=== PATIENT | female | born 1935 | race Caucasian/White ===

== ENCOUNTER 2020-01-11 17:00 | Inpatient (IN) ==
[2020-01-11] MEDS ORDERED: CARDIZEM INJ 50 MG VIAL ONE (18:13)
[2020-01-11] MEDS ORDERED: CARDIZEM INJ 50 MG VIAL IVP ONE (18:13)
[2020-01-11] MEDS ORDERED: CARDIZEM INJ 125 MG VIAL ONE (18:13)
--- NOTE | 2020-01-11 18:13 | DR.GENAD ---
HPI Time Seen Time Seen by Provider: 01/11/20 17:59 PCP Primary Care Physician: LEONIE CHRISTINA Complaint/Symptoms Chief Complaint Doctors Comments: Pt had lab work yesterday in [place]. Told to come to ED this afternoon. Her HB was 7.8, WBC 20,000 to left, CO2 19. Asymptomatic. 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 EKG shows a.fib w RVR at 161. Chief Complaint:: PT TO ER TO BE SEEN FOR ABN LABS ,,BR Self Treatment fo Chief Complaint: PT HAS LABS DONE ON 01/10/2020 PT DENIES PAIN , OR SOB Nurses notes reviewed Nurses Notes Review: Yes Source History Provided: Patient Mode of Arrival Mode of Arrival: Ambulatory Timing Onset of Chief Complaint: 01/10/20 Duration Duration: Unknown Associated Signs and Symptoms Associated Signs and Symptoms: none PMH PMH Past Medical History: Yes Past Medical History: Arthritis, COPD and Hypertension Past Medical History Comment: INSOMNIA, < APPETITE Rheum arthritis Past Surgical History: Yes Surgical History: Hysterectomy Family History History of Family Medical Conditions: Yes Family Medical History: Cancer, [place] and Coronary Artery Disease Social History Does patient currently use any type of tobacco product: Yes Have you used tobacco products in the last 12 months: Yes Type of Tobacco Use: Cigarettes Does any household member use tobacco: No Alcohol Use: Rarely Do you use any recreational Drugs:: No Lives With: Alone Lives Where: Home infectious screening In the last 2 months have you had wt loss of >10#?: NO Have you had fever, night sweats or hemotysis?: No Have you traveled outside the country in the last 6 months?: No Isolation: Standard ROS Review of Systems Constitutional: No Symptoms Reported; negative Chills and Fever ENTM: No Symptoms Reported Respiratoy: No Symptoms Reported Cardiovascular: No Symptoms Reported; negative Palpitations Gastrointestinal/Abdominal: No Symptoms Reported Neurological: No Symptoms Reported Musculoskeletal: No Symptoms Reported Integumentary: No Symptoms Reported All Other Systems: Reviewed and Negative PE Vital Signs Vitals: Temperature 97.2 F Pulse Rate [Apical] 167 Pulse Rate 155 Respiratory Rate 16 Blood Pressure [Left Arm] 169/106 Blood Pressure 130/85 O2 Sat by Pulse Oximetry 95 General Limitations: No Limitations General Appearance: Alert and In No Apparent Distress; negative Anxious Eyes Eye exam: Normal Appearance, EOMI and Other (pale conjunctiva); negative Scleral Icterus Neck Neck Exam: Normal Inspection and Full ROM Chest Chest Inspection: Normal Inspection Respiratory Respiratory Exam: Normal Lung Sounds Bilat Cardiovascular Cardiovascular Exam: Tachycardia and Irregular Rhythm Abdominal Exam Abdominal Exam: Normal Inspection and Soft; negative Distention, Tenderness and Guarding Extremities Extremities Exam: Normal Inspection; negative Edema and Calf Tenderness Neurologic Neurological Exam: Alert and Oriented X3 Psychiatric Psychiatric Exam: Normal Affect and Normal Mood Skin Skin Exam: Warm and Normal Color ROR Labs Reviewed Laboratory Results Reviewed?: Yes Result Diagrams: 01/11/20 18:15 01/11/20 18:15 Laboratory: WBC 19.1 X10^3/uL (3.6-10.0) H 01/11/20 18:15 RBC 3.42 X10^6/uL (3.5-5.4) L 01/11/20 18:15 Hgb 8.2 g/dL (12.0-16.0) L 01/11/20 18:15 Hct 25.3 % (36.0-47.0) L 01/11/20 18:15 MCV 73.9 fL (80.0-100.0) L 01/11/20 18:15 MCH 23.8 pg (27.0-34.0) L 01/11/20 18:15 MCHC 32.3 g/dL (33.0-35.0) L 01/11/20 18:15 RDW 18.4 % (11.6-16.5) H 01/11/20 18:15 Plt Count 622 X10^3/uL (150.0-450.0) H 01/11/20 18:15 Plt Count Comment Increased (ADEQUATE) A 01/11/20 18:15 MPV 7.0 fL (7.4-11.0) L 01/11/20 18:15 Neut % (Auto) 84.2 % (42.0-75.0) H 01/11/20 18:15 Lymph % (Auto) 10.5 % (21.0-51.0) L 01/11/20 18:15 [place] % (Auto) 4.8 % (0.0-13.0) 01/11/20 18:15 Eos % (Auto) 0.1 % (0.9-2.9) L 01/11/20 18:15 Baso % (Auto) 0.4 % (0.2-1.0) 01/11/20 18:15 Neut # (Auto) 16.1 x10^3/uL (2.2-4.8) H 01/11/20 18:15 Lymph # (Auto) 2.0 X10^3/uL (1.3-2.9) 01/11/20 18:15 [place] # (Auto) 0.9 x10^3/uL (0.3-0.8) H 01/11/20 18:15 Eos # (Auto) 0.0 x10^3/uL (0.0-0.2) 01/11/20 18:15 Baso # (Auto) 0.1 X10^3/uL (0.0-0.1) 01/11/20 18:15 Absolute Nucleated RBC 0.1 /100WBC 01/11/20 18:15 Plt Morphology Comment Normal (NORMAL) 01/11/20 18:15 RBC Morphology Abnormal (NORMAL) A 01/11/20 18:15 Hypochromasia 1+ A 01/11/20 18:15 Anisocytosis Slight A 01/11/20 18:15 Microcytosis Slight A 01/11/20 18:15 Schistocytes Slight A 01/11/20 18:15 Sodium 141 mmol/L (136-145) 01/11/20 18:15 Corrected Sodium TNP 01/11/20 18:15 Potassium 3.6 mmol/L (3.5-5.1) 01/11/20 18:15 Chloride 104 mmol/L (98-107) 01/11/20 18:15 Carbon Dioxide 25.1 mmol/L (21-32) 01/11/20 18:15 BUN 23 mg/dL (7-18) H 01/11/20 18:15 Creatinine 0.84 mg/dL (0.55-1.02) 01/11/20 18:15 Est GFR (MDRD) Af Amer > 60 (>60) 01/11/20 18:15 Est GFR (MDRD) Non-Af > 60 (>60) 01/11/20 18:15 Glucose 100 mg/dL (65-99) H 01/11/20 18:15 Calcium 8.2 mg/dL (8.5-10.1) L 01/11/20 18:15 Corrected Calcium 9.6 mg/dL (8.5-10.1) 01/11/20 18:15 Iron 12 ug/dL (50-175) L 01/11/20 18:15 TIBC 250 ug/dL (250-450) 01/11/20 18:15 TIBC Cancelled 01/11/20 18:15 % Saturation 4.8 % (11.0-46.0) L 01/11/20 18:15 Ferritin 113 ng/mL (8-252) 01/11/20 18:15 Total Bilirubin 0.50 mg/dL (0.2-1.0) 01/11/20 18:15 AST 17 Units/L (15-37) 01/11/20 18:15 ALT 14 Units/L (12-78) 01/11/20 18:15 Alkaline Phosphatase 160 Units/L (46-116) H 01/11/20 18:15 Creatine Kinase 41 Units/L (26-192) 01/11/20 18:15 CK-MB (CK-2) 1.9 ng/mL (0-4.0) 01/11/20 18:15 CK/CKMB % Calc 4.6 % (<4) 01/11/20 18:15 Troponin I < 0.02 ng/mL (0-1.5) 01/11/20 18:15 Total Protein 6.8 g/dL (6.4-8.2) 01/11/20 18:15 Albumin 2.2 g/dL (3.4-5.0) L 01/11/20 18:15 Globulin 4.6 g/dL (2.5-4.5) H 01/11/20 18:15 Albumin/Globulin Ratio 0.5 Ratio (1.1-2.1) L 01/11/20 18:15 XRAY X-ray Results: CXR nothing acute EKG Rate: 161 [place]: Normal Rhythm: Afib Block: None Hypertrophy: None ST: Nonsp Opioid Opioid Risk Tool Age (Abdoul box if 16-45): No History of Preadolescent Sexual Abuse: No Total: 0 Total Score Risk Category: Low Risk Copyright: [facility] predicting aberrant behaviors ADDITIONAL NOTES Additional Notes Additional Notes: admit to ICU. atrial fib with RVR, marked anemia, high WBC critical care 40 minutes
[2020-01-11] MEDS ORDERED: NS 100 ML IV 100 ML IV ONE (18:14)
[2020-01-11 18:20] LABS: BASOPHILS # (AUTO) 0.1 X10^3/uL (0.0-0.1); BASOPHILS % (AUTO) 0.4 % (0.2-1.0); EOSINOPHILS % (AUTO) 0.1 % (0.9-2.9); HEMATOCRIT 25.3 % (36.0-47.0); HEMOGLOBIN 8.2 g/dL (12.0-16.0); LYMPHOCYTES % (AUTO) 10.5 % (21.0-51.0); MEAN CORPUSCULAR HEMOGLOBIN 23.8 pg (27.0-34.0); MEAN CORPUSCULAR HGB CONC 32.3 g/dL (33.0-35.0); MEAN CORPUSCULAR VOLUME 73.9 fL (80.0-100.0); MONOCYTES # (AUTO) 0.9 x10^3/uL (0.3-0.8); MONOCYTES % (AUTO) 4.8 % (0.0-13.0); NEUTROPHILS # (AUTO) 16.1 x10^3/uL (2.2-4.8); NEUTROPHILS % (AUTO) 84.2 % (42.0-75.0); PLATELET COUNT 622 X10^3/uL (150.0-450.0); RED BLOOD COUNT 3.42 X10^6/uL (3.5-5.4); RED CELL DISTRIBUTION WIDTH 18.4 % (11.6-16.5); WHITE BLOOD COUNT 19.1 X10^3/uL (3.6-10.0)
[2020-01-11] MEDS: CARDIZEM INJ 125 MG VIAL 125 MG in NS 100 ML IV 100 ML IV PRN (18:29)
[2020-01-11 18:39] LABS: ANISOCYTOSIS SLIGHT; BLOOD UREA NITROGEN 23 mg/dL (7-18); CALCIUM 8.2 mg/dL (8.5-10.1); CARBON DIOXIDE 25.1 mmol/L (21-32); CHLORIDE 104 mmol/L (98-107); CREATININE 0.84 mg/dL (0.55-1.02); HYPOCHROMASIA 1+; MICROCYTOSIS SLIGHT; PLATELET MORPHOLOGY COMMENT NORMAL (NORMAL); SCHISTOCYTES SLIGHT; SODIUM 141 mmol/L (136-145); TROPONIN I < 0.02 ng/mL (0-1.5); eGFR NON BLACK RACES > 60 (>60)
[2020-01-11 18:44] LABS: ALANINE AMINOTRANSFERASE 14 Units/L (12-78); ALBUMIN 2.2 g/dL (3.4-5.0); ALKALINE PHOSPHATASE 160 Units/L (46-116); ASPARTATE AMINO TRANSFERASE 17 Units/L (15-37); CKMB % 4.6 % (<4); COR CA(FOR HYPOALB) 9.6 mg/dL (8.5-10.1); CREATINE KINASE 41 Units/L (26-192); CREATINE KINASE MB 1.9 ng/mL (0-4.0); TOTAL PROTEIN 6.8 g/dL (6.4-8.2)
--- NOTE | 2020-01-11 18:50 | RAD ---
HISTORYELEVATED HRSTUDYCHEST, 1 VIEWCOMPARISONNo recent comparisonTECHNIQUEThe chest x-rayFINDINGSThe cardiac silhouette is enlarged. An uncoiled, tortuous, ectatic thoracic aorta configuration is observed. No infiltrates, edema or pleural fluid collections identified. There is no free air or pneumothorax.IMPRESSIONCardiomegaly with tortuous, ectatic thoracic aorta.No infiltrates or edema identified.Electronically signed by: ELKE JOSEPH (Jan 11, 2020 18:49:11)
[2020-01-11] MEDS ORDERED: NS 1000 ML 1,000 ML ONE (18:57)
[2020-01-11] MEDS: NS 1000 ML 1,000 ML IV SCH (19:00)
[2020-01-11 22:21] VITALS: BMI 25.1
[2020-01-11] MEDS: KLONOPIN TAB 0.5 MG PO SCH (22:28)
[2020-01-11] MEDS: XALATAN OP SCH (22:29)
[2020-01-11] MEDS: PRED FORTE 1 % OP SCH (22:29)
[2020-01-12] MEDS: CARDIZEM INJ 125 MG VIAL 125 MG in NS 100 ML IV 100 ML IV PRN ×3 (04:34→23:01)
[2020-01-12] MEDS: NS 1000 ML 1,000 ML IV SCH ×4 (04:37→23:21)
[2020-01-12 05:12] LABS: BASOPHILS % (AUTO) 0.2 % (0.2-1.0); EOSINOPHILS # (AUTO) 0.1 x10^3/uL (0.0-0.2); EOSINOPHILS % (AUTO) 0.3 % (0.9-2.9); HEMATOCRIT 22.1 % (36.0-47.0); HEMOGLOBIN 7.1 g/dL (12.0-16.0); LYMPHOCYTES # (AUTO) 0.9 X10^3/uL (1.3-2.9); LYMPHOCYTES % (AUTO) 6.1 % (21.0-51.0); MEAN CORPUSCULAR HEMOGLOBIN 25.3 pg (27.0-34.0); MEAN CORPUSCULAR HGB CONC 32.1 g/dL (33.0-35.0); MEAN CORPUSCULAR VOLUME 78.9 fL (80.0-100.0); MEAN PLATELET VOLUME 7.4 fL (7.4-11.0); MONOCYTES # (AUTO) 0.9 x10^3/uL (0.3-0.8); MONOCYTES % (AUTO) 6.3 % (0.0-13.0); NEUTROPHILS % (AUTO) 87.1 % (42.0-75.0); PLATELET COUNT 528 X10^3/uL (150.0-450.0); RED CELL DISTRIBUTION WIDTH 17.9 % (11.6-16.5); WHITE BLOOD COUNT 14.9 X10^3/uL (3.6-10.0)
[2020-01-12 05:23] LABS: BLOOD UREA NITROGEN 14 mg/dL (7-18); CALCIUM 7.9 mg/dL (8.5-10.1); CARBON DIOXIDE 24.5 mmol/L (21-32); CHLORIDE 108 mmol/L (98-107); CREATININE 0.63 mg/dL (0.55-1.02); SODIUM 142 mmol/L (136-145); eGFR NON BLACK RACES > 60 (>60)
[2020-01-12 05:25] LABS: ANISOCYTOSIS SLIGHT; HYPOCHROMASIA 1+; OVALOCYTES PRESENT; PLATELET MORPHOLOGY COMMENT NORMAL (NORMAL)
[2020-01-12] MEDS ORDERED: K-RIDER 10 MEQ/NS 100 ML 10 MEQ/100 ML BAG IV PRN (05:31)
[2020-01-12] MEDS ORDERED: MICRO K EXTEN CAP 10 MEQ PO PRN (05:31)
[2020-01-12] MEDS ORDERED: POTASSIUM CHL 40 MEQ/NS 0.45% 500 ML IV PRN (05:31)
[2020-01-12] MEDS ORDERED: POTASSIUM CHL 60 MEQ/NS 0.45% 500 ML IV PRN (05:31)
[2020-01-12] MEDS ORDERED: POTASSIUM CHLORIDE LIQ 20 MEQ UDC PO PRN (05:31)
[2020-01-12] MEDS ORDERED: MAGNESIUM SULFATE 1 GRAM/100 mL PREMIX 1 GM/100 ML BAG IV PRN (05:31)
[2020-01-12] MEDS ORDERED: KLOR-CON PO PRN (05:31)
[2020-01-12] MEDS: K-DUR TAB 20 MEQ PO PRN ×2 (06:09→08:41)
[2020-01-12] MEDS ORDERED: ZESTRIL TAB 20 MG ONE (08:30)
[2020-01-12] MEDS: NORCO 10/325 TAB PO PRN ×2 (08:42→21:02)
[2020-01-12] MEDS: ZESTRIL TAB 20 MG PO SCH (08:42)
[2020-01-12] MEDS: ASPIRIN EC 81 MG PO SCH (08:43)
[2020-01-12] MEDS: PRED FORTE 1 % OP SCH ×2 (08:44→21:53)
[2020-01-12] MEDS: LEVSIN/MAALOX/LIDOC VISC PO SCH ×4 (09:58→21:00)
[2020-01-12] MEDS: PROTONIX INJ 40 MG VIAL IVP SCH ×2 (09:58→21:01)
[2020-01-12] MEDS: PEPCID 20 MG IV PREMIX* 20 MG/50 ML BAG IV SCH ×2 (09:58→21:00)
[2020-01-12] MEDS ORDERED: NS 250 ML IV 250 ML IV ONE ×2 (11:32→16:32)
--- NOTE | 2020-01-12 11:33 | DR.H&P ---
H&P - History & Physical for Day of: H&P Date: 01/11/20 - Chief Complaint Chief Complaint: WEAKNESS, SOB, ABNORMAL LABS - History of Present Illness History of Present Illness: IS A 84 YEAR OLD PATIENT OF OURS WHO PRESENTED TO THE ER WITH COMPLAINTS OF WEAKNESS, SHORTNESS OF BREATH, AND ABNORMAL OUTPATIENT LABS. OUTPATIENT LABS REVEALED THAT PATIENTS HEMOGLOBIN WAS 7.8, WBC 20,000, C02 19.0. ON ARRIVAL TO THE ER, SHE WAS NOTED WITH HR 175-180 WITH ATRIAL FIBRILLATION ON THE MONITOR. BLOOD PRESSURE WAS NOTED TO BE 130/85. LABS WERE OBTAINED. ABNORMAL LAB VALUES REVEALED THE FOLLOWING ABNORMAL VALUES: WBC 19.1, RBC 3.42, HGB 8.2, HCT 25.3, PLT COUNT 622, BUN 23, GLUCOSE 100, CALCIUM 8.2, IRON 12, % SATURATION 4.8, ALK PHOS 160, ALBUMIN 2.2, GLOBULIN 4.6. AN EKG WAS OBTAINED AND REVEALED: ATRIAL FIBRILLATION WITH RVR. HR 161. A CHEST XRAY WAS OBTAINED AND REVEALED: The cardiac silhouette is enlarged. An uncoiled, tortuous, ectatic thoracic aorta configuration is observed. No infiltrates, edema or pleural fluid collections identified. There is no free air or pneumothorax. SHE WAS STARTED ON A CARDIZEM DRIP AND ADMITTED TO THE HOSPITAL FOR FURTHER EVALUATION AND TREATMENT OF A-FIB WITH RVR, SEVERE ANEMIA, AND LEUKOCYTOSIS. WE STARTED NS AT KVO, CARDIZEM DRIP, IV ZOSYN, THE POTASSIUM AND MAGNESIUM PROTOCOLS, PEPCID IV, PROTONIX IV, GI COCKTAIL, AND HOME MEDICATIONS WERE RESUMED. WE WILL OBTAIN STOOL, URINE, BLOOD, AND SPUTUM CULTURES TODAY. WE WILL ALSO TRANSFUSE TWO UNITS OF PRBC, HEMOCCULT STOOLS, AND CONSULT GI. OTHERWISE, WE PLAN TO FOLLOW UP WITH AM LABS AND CONTINUE TO MONITOR. - Past Medical History Past Medical History: Hypertension, COPD, Arthritis - Past Surgical History Surgical History: Hysterectomy - Family History Family Medical History: Diabetes Mellitus, Cancer, [place], Coronary Artery Disease, Hypertension - Social History Does patient currently use any type of tobacco product: Yes Have you used tobacco products in the last 12 months: Yes Type of Tobacco Use: Cigarettes How many years tobacco product used: 60 Does any household member use tobacco: Yes Alcohol Use: Occasionally Drug Use: None - Medications Home Medications: No Known Drug Allergies Allergy (Verified 01/11/20 17:18) CONTINUE taking the following medications aspirin [Aspir-Low] 81 mg PO DAILY 01/11/20 [History] clonazepam 0.5 mg PO QHS 01/11/20 [History] dorzolamide 1 drp OPHTHALMIC (EYE) BID 01/11/20 [History] hydrocodone-acetaminophen 1 tab PO QID 01/11/20 [History] latanoprost 1 drp OPHTHALMIC (EYE) HS 01/11/20 [History] lisinopril 20 mg PO DAILY 01/11/20 [History] naproxen-diphenhydramine [Aleve PM] 2 tab PO HS 01/11/20 [History] prednisolone acetate 1 drp OPHTHALMIC (EYE) BID 01/11/20 [History] - Review of Systems Constitutional: See HPI, Weakness Eyes: No Symptoms Reported ENT: No Symptoms Reported Respiratory: Shortness of Breath Cardiovascular: See HPI, Palpitations Gastrointestinal: No Symptoms Reported Genitourinary: No Symptoms Reported Musculoskeletal: No Symptoms Reported Skin: No Symptoms Reported Neurological: Weakness - Physical Exam Vital Signs: Temperature 100.8 F Pulse Rate [Apical] 167 Pulse Rate 105 Respiratory Rate 18 Blood Pressure [Left Arm] 169/106 Blood Pressure 110/77 O2 Sat by Pulse Oximetry 95 Oriented: Normal Eyes: Normal Ear: Normal Nose: Normal Throat: Normal Respiratory: Diminished Throughout Cardiovascular: Tachycardia, Irregular. negative: S3, S4, Murmur : Normal Auscultation: Bowel Sounds: Normal Palpation: Normal Tenderness: Normal Skin: Normal Musculoskeletal: Normal Psychiatric: Normal Mood Description: Calm Affect: Normal Speech Pattern: Clear - Assessment/Plan (1) Atrial fibrillation with RVR Status: Acute Plan: ADMIT, NS AT O, CARDIZEM DRIP, IV ZOSYN, THE POTASSIUM AND MAGNESIUM PROTOCOLS, PEPCID IV, PROTONIX IV, GI COCKTAIL, AND HOME MEDICATIONS WERE RESUMED, OBTAIN CULTURES (2) Anemia Qualifiers: Anemia type: iron deficiency Iron deficiency anemia type: unspecified iron deficiency Qualified Code(s): D50.9 - Iron deficiency anemia, unspecified Status: Acute (3) Leukocytosis Qualifiers: Leukocytosis type: unspecified Qualified Code(s): D72.829 - Elevated white blood cell count, unspecified Status: Acute - Allergies Allergies/Adverse Reactions: Allergies Allergy/AdvReac Type Severity Reaction Status Date / Time No Known Drug Allergies Allergy Verified 01/11/20 17:18
[2020-01-12 14:07] LABS: BILIRUBIN,URINE NEGATIVE (NEGATIVE); BLOOD/HEMOGLOBIN,URINE 1+ (NEGATIVE); GLUCOSE, URINE NEGATIVE (NEGATIVE); KETONES,URINE 1+ (NEGATIVE); LEUKOCYTE ESTERASE ,URINE 1+ (NEGATIVE); NITRITES,URINE NEGATIVE (NEGATIVE); PROTEIN,URINE 2+ (NEGATIVE); UROBILINOGEN,URINE 2+ (NORMAL)
[2020-01-12] MEDS: ZOSYN VIAL 4.5 GRAMS 4.5 G in NS 100 ML IV + SPIKE MINIBAG* 100 ML IV SCH ×3 (14:19→21:01)
[2020-01-12 14:20] LABS: APPEARANCE,URINE HAZY (CLEAR); COLOR,URINE YELLOW (YELLOW)
[2020-01-12 14:21] LABS: BACTERIA,URINE 1+ /HPF (NEGATIVE); MUCUS,URINE FEW /HPF (NEGATIVE); SQUAMOUS EPITHELIAL CELL,UR FEW /HPF (NEGATIVE)
--- NOTE | 2020-01-12 19:32 | DR.CONSULT ---
Consult - Consultation for Day of: Date: 01/12/20 - Chief Complaint Chief Complaint: Patient referred for Anemia. Patient with complaints of dysphagia, dyspepsia, lower abdominal pain and constipation. - History of Present Illness History of Present Illness: Patient is a 84 yo female who was referred for Anemia. Patient with complaints of dysphagia, dyspepsia, lower abdominal pain for 3 days but has improved and constipation but has improved had BM this am. Patient denies nausea, vomiting, denies seeing any melena or hematochezia. Patient states she had never had a colonoscopy or EGD. Patient noted to have epigastric tenderness on palpitation. WBC 14.9, Hgb 7.1, Hct 22.1, Plt 528, BUN 14, Creatinine 0.65, Iron 12. Hemoccult positive. - Past Medical History Past Medical History: Hypertension, COPD, Arthritis - Past Surgical History Surgical History: Hysterectomy - Family History Family Medical History: Diabetes Mellitus, Cancer, [place], Coronary Artery Disease, Hypertension - Social History Does patient currently use any type of tobacco product: Yes Have you used tobacco products in the last 12 months: Yes Type of Tobacco Use: Cigarettes (1 1/2-2ppd) How many years tobacco product used: 60 Does any household member use tobacco: Yes Alcohol Use: Occasionally Drug Use: None - Medications Home Medications: No Known Drug Allergies Allergy (Verified 01/11/20 17:18) CONTINUE taking the following medications aspirin [Aspir-Low] 81 mg PO DAILY 01/11/20 [History] clonazepam 0.5 mg PO QHS 01/11/20 [History] dorzolamide 1 drp OPHTHALMIC (EYE) BID 01/11/20 [History] hydrocodone-acetaminophen 1 tab PO QID 01/11/20 [History] latanoprost 1 drp OPHTHALMIC (EYE) HS 01/11/20 [History] lisinopril 20 mg PO DAILY 01/11/20 [History] naproxen-diphenhydramine [Aleve PM] 2 tab PO HS 01/11/20 [History] prednisolone acetate 1 drp OPHTHALMIC (EYE) BID 01/11/20 [History] - Review of Systems Gastrointestinal: See HPI, Abdominal Pain, Constipation, Other (dysphagia, dyspepsia). denies: Nausea, Vomiting, Diarrhea, Melena, Hematochezia - Physical Exam Vital Signs: Temperature 99.9 F Pulse Rate [Apical] 167 Pulse Rate 97 Respiratory Rate 25 Blood Pressure [Left Arm] 169/106 Blood Pressure 151/87 O2 Sat by Pulse Oximetry 96 Oriented: Normal Eyes: Normal Ear: Normal Nose: Normal Throat: Normal Respiratory: Clear Throughout Auscultation: Bowel Sounds: Normal Palpation: Normal. negative: Spleen Enlarged, Liver Enlarged, Mass Pulsatile Tenderness: Epigastric Skin: Normal Musculoskeletal: Normal Psychiatric: Normal Mood Description: Calm, Appropriate Affect: Normal Speech Pattern: Clear, Appropriate - Plan Plan: Assessment. 1. Iron Deficiency Anemia r/o GI Loss. 2. Occult GI Bleed. Plan. 1. EGD in am Will need colonoscopy, Monitor Hgb Transfuse as needed, Protonix IV. Plan reviewed with Dr. Dallas - Allergies Allergies/Adverse Reactions: Allergies Allergy/AdvReac Type Severity Reaction Status Date / Time No Known Drug Allergies Allergy Verified 01/11/20 17:18
[2020-01-12 20:07] LABS: HEMATOCRIT 27.4 % (36.0-47.0)
[2020-01-12] MEDS: KLONOPIN TAB 0.5 MG PO SCH (21:00)
[2020-01-12] MEDS: XALATAN OP SCH (21:54)
[2020-01-12] MEDS ORDERED: VISTARIL PO PRN (22:48)
[2020-01-12] MEDS ORDERED: VALIUM INJ IVP PRN (23:34)
[2020-01-12] MEDS ORDERED: VALIUM INJ ONE (23:43)
[2020-01-13] MEDS: ZOSYN VIAL 4.5 GRAMS 4.5 G in NS 100 ML IV + SPIKE MINIBAG* 100 ML IV SCH ×3 (05:10→21:50)
[2020-01-13 05:30] LABS: BASOPHILS % (AUTO) 0.1 % (0.2-1.0); EOSINOPHILS % (AUTO) 0.1 % (0.9-2.9); HEMOGLOBIN 8.9 g/dL (12.0-16.0); LYMPHOCYTES # (AUTO) 0.8 X10^3/uL (1.3-2.9); LYMPHOCYTES % (AUTO) 5.2 % (21.0-51.0); MEAN CORPUSCULAR HEMOGLOBIN 25.9 pg (27.0-34.0); MEAN CORPUSCULAR HGB CONC 32.8 g/dL (33.0-35.0); MEAN PLATELET VOLUME 7.3 fL (7.4-11.0); MONOCYTES % (AUTO) 6.9 % (0.0-13.0); NEUTROPHILS # (AUTO) 13.2 x10^3/uL (2.2-4.8); NEUTROPHILS % (AUTO) 87.7 % (42.0-75.0); PLATELET COUNT 502 X10^3/uL (150.0-450.0); RED BLOOD COUNT 3.42 X10^6/uL (3.5-5.4); RED CELL DISTRIBUTION WIDTH 17.8 % (11.6-16.5)
[2020-01-13 05:46] LABS: ALANINE AMINOTRANSFERASE 20 Units/L (12-78); ALBUMIN 1.8 g/dL (3.4-5.0); ALKALINE PHOSPHATASE 152 Units/L (46-116); ASPARTATE AMINO TRANSFERASE 31 Units/L (15-37); BLOOD UREA NITROGEN 12 mg/dL (7-18); CALCIUM 7.9 mg/dL (8.5-10.1); CARBON DIOXIDE 25.1 mmol/L (21-32); CHLORIDE 112 mmol/L (98-107); COR CA(FOR HYPOALB) 9.7 mg/dL (8.5-10.1); CREATININE 0.69 mg/dL (0.55-1.02); SODIUM 145 mmol/L (136-145); TOTAL PROTEIN 5.9 g/dL (6.4-8.2); eGFR NON BLACK RACES > 60 (>60)
[2020-01-13 05:54] LABS: ANISOCYTOSIS SLIGHT; HYPOCHROMASIA SLIGHT; OVALOCYTES PRESENT; PLATELET MORPHOLOGY COMMENT NORMAL (NORMAL)
[2020-01-13] MEDS ORDERED: AFLURIA II4 or FLUARIX II4 IM ONE (07:54)
[2020-01-13] MEDS ORDERED: NICOTINE PATCH TD ONE (08:01)
[2020-01-13] MEDS: NICOTINE PATCH TD SCH (08:06)
[2020-01-13] MEDS ORDERED: ZESTRIL TAB 20 MG ONE (08:19)
[2020-01-13] MEDS: LEVSIN/MAALOX/LIDOC VISC PO SCH ×4 (08:40→20:57)
[2020-01-13] MEDS: ASPIRIN EC 81 MG PO SCH (08:40)
[2020-01-13] MEDS: ZESTRIL TAB 20 MG PO SCH (08:41)
[2020-01-13] MEDS: PEPCID 20 MG IV PREMIX* 20 MG/50 ML BAG IV SCH ×2 (08:41→21:01)
[2020-01-13] MEDS: PROTONIX INJ 40 MG VIAL IVP SCH ×2 (09:09→21:49)
[2020-01-13] MEDS: PRED FORTE 1 % OP SCH ×2 (09:09→21:07)
[2020-01-13] MEDS ORDERED: LANOXIN INJ IVP ONE (10:06)
[2020-01-13] MEDS: CARDIZEM INJ 125 MG VIAL 125 MG in NS 100 ML IV 100 ML IV PRN ×2 (10:18→18:47)
[2020-01-13] MEDS: NORCO 10/325 TAB PO PRN ×2 (11:08→16:00)
[2020-01-13] MEDS ORDERED: DIPRIVAN VIAL 20 ML ONE (13:20)
[2020-01-13] MEDS: NS 1000 ML 1,000 ML IV SCH (18:15)
[2020-01-13 18:23] LABS: BILIRUBIN,URINE NEGATIVE (NEGATIVE); BLOOD/HEMOGLOBIN,URINE 1+ (NEGATIVE); GLUCOSE, URINE NEGATIVE (NEGATIVE); KETONES,URINE NEGATIVE (NEGATIVE); LEUKOCYTE ESTERASE ,URINE NEGATIVE (NEGATIVE); NITRITES,URINE NEGATIVE (NEGATIVE); PROTEIN,URINE 2+ (NEGATIVE); UROBILINOGEN,URINE NORMAL (NORMAL)
[2020-01-13 18:30] LABS: APPEARANCE,URINE SLIGHTLY HAZY (CLEAR); COLOR,URINE YELLOW (YELLOW)
[2020-01-13 18:31] LABS: BACTERIA,URINE TRACE /HPF (NEGATIVE); RBC,URINE 0-2 /HPF (0-3); SQUAMOUS EPITHELIAL CELL,UR RARE /HPF (NEGATIVE)
[2020-01-13 18:33] LABS: AMORPHOUS SEDIMENT,UR TRACE /HPF (NEGATIVE)
[2020-01-13] MEDS: KLONOPIN TAB 0.5 MG PO SCH (20:57)
--- NOTE | 2020-01-13 21:01 | PCM.PROG ---
Progress Note - Progress Note for Day of Date of Exam: 01/13/20 - Subjective Subjective: IS BEING TREATED FOR A-FIB WITH RVR, ANEMIA, AND LEUKOCYTOSIS. TODAY, SHE IS ALERT AND ORIENTED, LYING IN BED ON MORNING ROUNDS. SHE REMAINS ON A CARDIZEM DRIP THIS MORNING. DRIP WAS DECREASED LAST NIGHT, BUT HAD TO BE INCREASED AGAIN DUE TO PERSISTENT TACHYCARDIA. STAFF REPORTS THAT PATIENT HAS BEEN AGITATED THROUGHOUT THE NIGHT. ON EXAMINATION, HEART RHYTHM IS IRREGULAR. RATE IS NOTED TO BEE 100-115 BPM. BILATERAL LUNGS ARE NOTED WITH DIMINISHED LUNG SOUNDS THROUGHOUT. ABDOMEN IS ROUND, SOFT, AND NOTED WITH DIFFUSE TENDERNESS. NORMAL BOWEL SOUNDS ARE NOTED IN ALL QUADRANTS. HER VITALS THIS MORNING ARE: 98.1-097-34-99-170/84. LABS WERE OBTAINED. ABNORMAL LAB VALUES INCLUDE THE FOLLOWING: WBC 15.0, RBC 3.42, HGB 8.9, HCT 27.0, CHLORIDE 112, GLUCOSE 110, CALCIUM 7.9, ALK PHOS 152. URINALYSIS REVEALS: WBC 5-10, RBC 5-10, LEUKOCYTES 1+, BACTERIA 1+. A URINE CULTURE WAS SET UP. STOOL POSITIVE FOR OCCULT BLOOD. STOOL AND BLOOD CULTURES ARE ALSO PENDING. CONSULTED WITH PATIENT AND PLANS FOR AN EGD TODAY. WE ARE IN AGREEMENT WITH PLANS. SHE IS CURRENTLY RECEIVING NS AT 75ML/HR, ZOSYN 4.5G IV TID, THE POTASSIUM AND MAGNESIUM PROTOCOLS, PEPCID IV, PROTONIX IV, GI COCKTAIL, CARDIZEM DRIP, VALIUM 5MG IV Q8H PRN, AND HOME MEDICATIONS WERE RESUMED. WE WILL ADMINISTER DIGOXIN 0.5MG IV X 1 DOSE TODAY. OTHERWISE, WE PLAN TO FOLLOW UP WITH AM LABS AND CONTINUE TO MONITOR. - Past Medical Family Social History Past Med/Fam/Surg Hx: No changes since H&P Allergies: Allergies No Known Drug Allergies Allergy (Verified 01/11/20 17:18) - Review of Systems ROS: No change since H&P - Vital Signs and I&O's Vital Signs: Temperature 99.8 F Pulse Rate [Apical] 167 Pulse Rate 93 Respiratory Rate 24 Blood Pressure [Left Arm] 169/106 Blood Pressure 148/76 O2 Sat by Pulse Oximetry 97 Intake and Output: Intake & Output 01/11/20 01/12/20 01/13/20 01/14/20 11:59 11:59 11:59 11:59 Intake Total 1456 / 1456 4741 / 4741 225 / 225 Balance 1456 / 1456 4741 / 4741 225 / 225 - Physical Exam Oriented: Normal Eyes: Normal Ear: Normal Nose: Normal Throat: Normal Cardiovascular: Tachycardia, Irregular. negative: S3, S4, Murmur : Normal Auscultation: Bowel Sounds: Normal Palpation: Normal Tenderness: Epigastric Skin: Normal Musculoskeletal: Normal Psychiatric: Normal Mood Description: Calm, Appropriate Affect: Normal Speech Pattern: Clear - Laboratory and Diagnostics Result Diagrams: 01/13/20 04:56 01/13/20 04:56 Labs: 01/12/20 13:45 Stool Stool Culture - Preliminary 01/12/20 13:45 Stool - Final 01/12/20 13:45 Urine,Clean Catch Urine Culture - Final Laboratory WBC 15.0 X10^3/uL (3.6-10.0) H 01/13/20 04:56 RBC 3.42 X10^6/uL (3.5-5.4) L 01/13/20 04:56 Hgb 8.9 g/dL (12.0-16.0) L 01/13/20 04:56 Hct 27.0 % (36.0-47.0) L 01/13/20 04:56 MCV 79.0 fL (80.0-100.0) L 01/13/20 04:56 MCH 25.9 pg (27.0-34.0) L 01/13/20 04:56 MCHC 32.8 g/dL (33.0-35.0) L 01/13/20 04:56 RDW 17.8 % (11.6-16.5) H 01/13/20 04:56 Plt Count 502 X10^3/uL (150.0-450.0) H 01/13/20 04:56 Plt Count Comment Increased (ADEQUATE) A 01/13/20 04:56 MPV 7.3 fL (7.4-11.0) L 01/13/20 04:56 Neut % (Auto) 87.7 % (42.0-75.0) H 01/13/20 04:56 Lymph % (Auto) 5.2 % (21.0-51.0) L 01/13/20 04:56 [place] % (Auto) 6.9 % (0.0-13.0) 01/13/20 04:56 Eos % (Auto) 0.1 % (0.9-2.9) L 01/13/20 04:56 Baso % (Auto) 0.1 % (0.2-1.0) L 01/13/20 04:56 Neut # (Auto) 13.2 x10^3/uL (2.2-4.8) H 01/13/20 04:56 Lymph # (Auto) 0.8 X10^3/uL (1.3-2.9) L 01/13/20 04:56 [place] # (Auto) 1.0 x10^3/uL (0.3-0.8) H 01/13/20 04:56 Eos # (Auto) 0.0 x10^3/uL (0.0-0.2) 01/13/20 04:56 Baso # (Auto) 0.0 X10^3/uL (0.0-0.1) 01/13/20 04:56 Absolute Nucleated RBC 0.1 /100WBC 01/13/20 04:56 Plt Morphology Comment Normal (NORMAL) 01/13/20 04:56 RBC Morphology Abnormal (NORMAL) A 01/13/20 04:56 Hypochromasia Slight A 01/13/20 04:56 Anisocytosis Slight A 01/13/20 04:56 Microcytosis Slight A 01/11/20 18:15 Ovalocytes Present 01/13/20 04:56 Schistocytes Slight A 01/11/20 18:15 Sodium 145 mmol/L (136-145) 01/13/20 04:56 Corrected Sodium TNP 01/13/20 04:56 Potassium 3.9 mmol/L (3.5-5.1) 01/13/20 04:56 Chloride 112 mmol/L (98-107) H 01/13/20 04:56 Carbon Dioxide 25.1 mmol/L (21-32) 01/13/20 04:56 BUN 12 mg/dL (7-18) 01/13/20 04:56 Creatinine 0.69 mg/dL (0.55-1.02) 01/13/20 04:56 Est GFR (MDRD) Af Amer > 60 (>60) 01/13/20 04:56 Est GFR (MDRD) Non-Af > 60 (>60) 01/13/20 04:56 Glucose 110 mg/dL (65-99) H 01/13/20 04:56 Calcium 7.9 mg/dL (8.5-10.1) L 01/13/20 04:56 Corrected Calcium 9.7 mg/dL (8.5-10.1) 01/13/20 04:56 Magnesium 2.1 mg/dL (1.7-2.9) 01/12/20 04:20 Iron 12 ug/dL (50-175) L 01/11/20 18:15 TIBC 250 ug/dL (250-450) 01/11/20 18:15 TIBC Cancelled 01/11/20 18:15 % Saturation 4.8 % (11.0-46.0) L 01/11/20 18:15 Ferritin 113 ng/mL (8-252) 01/11/20 18:15 Total Bilirubin 0.70 mg/dL (0.2-1.0) 01/13/20 04:56 AST 31 Units/L (15-37) 01/13/20 04:56 ALT 20 Units/L (12-78) 01/13/20 04:56 Alkaline Phosphatase 152 Units/L (46-116) H 01/13/20 04:56 Creatine Kinase 41 Units/L (26-192) 01/11/20 18:15 CK-MB (CK-2) 1.9 ng/mL (0-4.0) 01/11/20 18:15 CK/CKMB % Calc 4.6 % (<4) 01/11/20 18:15 Troponin I < 0.02 ng/mL (0-1.5) 01/11/20 18:15 Total Protein 5.9 g/dL (6.4-8.2) L 01/13/20 04:56 Albumin 1.8 g/dL (3.4-5.0) L 01/13/20 04:56 Globulin 4.1 g/dL (2.5-4.5) 01/13/20 04:56 Albumin/Globulin Ratio 0.4 Ratio (1.1-2.1) L 01/13/20 04:56 Specimen Type Catherized urine 01/13/20 18:05 Urine Color Yellow (YELLOW) 01/13/20 18:05 Urine Appearance Slightly hazy (CLEAR) 01/13/20 18:05 Urine pH 5.0 (5.0 - 8.0) 01/13/20 18:05 Ur Specific [place] 1.015 (1.000-1.030) 01/13/20 18:05 Urine Protein 2+ (NEGATIVE) 01/13/20 18:05 Urine Glucose (UA) Negative (NEGATIVE) 01/13/20 18:05 Urine Ketones Negative (NEGATIVE) 01/13/20 18:05 Urine Occult Blood 1+ (NEGATIVE) 01/13/20 18:05 Urine Nitrite Negative (NEGATIVE) 01/13/20 18:05 Urine Bilirubin Negative (NEGATIVE) 01/13/20 18:05 Urine Urobilinogen Normal (NORMAL) 01/13/20 18:05 Ur Leukocyte Esterase Negative (NEGATIVE) 01/13/20 18:05 Urine RBC 0-2 /HPF (0-3) 01/13/20 18:05 Urine WBC 0-2 /HPF (0-5) 01/13/20 18:05 Ur Squamous Epith Cells Rare /HPF (NEGATIVE) 01/13/20 18:05 Amorphous Sediment Trace /HPF (NEGATIVE) 01/13/20 18:05 Urine Bacteria Trace /HPF (NEGATIVE) 01/13/20 18:05 Urine Mucus Few /HPF (NEGATIVE) 01/12/20 13:45 Ur Culture Indicated? No/not indicated 01/13/20 18:05 Stool Description Fob tube 01/12/20 11:15 Stl Occult Blood (IFOB) Positive (NEGATIVE) A 01/12/20 11:15 Tissue Pathology To follow 01/13/20 13:30 Blood Type O POSITIVE 01/11/20 19:26 Antibody Screen Negative 01/11/20 19:26 Crossmatch See Detail 01/11/20 19:26 - Plan (1) Atrial fibrillation with RVR Status: Acute Plan: ADMIT, NS AT 75 ML/HR, CARDIZEM DRIP, IV ZOSYN, THE POTASSIUM AND MAGNESIUM PROTOCOLS, PEPCID IV, PROTONIX IV, GI COCKTAIL, AND HOME MEDICATIONS WERE RESUMED, OBTAIN CULTURES (2) Anemia Status: Acute Qualifiers: Anemia type: iron deficiency Iron deficiency anemia type: unspecified iron deficiency Qualified Code(s): D50.9 - Iron deficiency anemia, unspecified (3) Leukocytosis Status: Acute Qualifiers: Leukocytosis type: unspecified Qualified Code(s): D72.829 - Elevated white blood cell count, unspecified
[2020-01-13] MEDS: XALATAN OP SCH (21:49)
[2020-01-14] MEDS: NORCO 10/325 TAB PO PRN ×3 (01:47→17:21)
[2020-01-14] MEDS: NS 1000 ML 1,000 ML IV SCH ×2 (03:26→19:31)
[2020-01-14] MEDS: CARDIZEM INJ 125 MG VIAL 125 MG in NS 100 ML IV 100 ML IV PRN (03:27)
[2020-01-14] MEDS: ZOSYN VIAL 4.5 GRAMS 4.5 G in NS 100 ML IV + SPIKE MINIBAG* 100 ML IV SCH ×3 (05:20→23:12)
[2020-01-14 06:32] LABS: ALANINE AMINOTRANSFERASE 36 Units/L (12-78); ALBUMIN 1.8 g/dL (3.4-5.0); ALKALINE PHOSPHATASE 153 Units/L (46-116); ASPARTATE AMINO TRANSFERASE 65 Units/L (15-37); BLOOD UREA NITROGEN 9 mg/dL (7-18); CARBON DIOXIDE 27.9 mmol/L (21-32); CHLORIDE 112 mmol/L (98-107); COR CA(FOR HYPOALB) 9.8 mg/dL (8.5-10.1); COR NA(FOR HYPERGLY) 146 mmol/L (136-145); CREATININE 0.61 mg/dL (0.55-1.02); SODIUM 146 mmol/L (136-145); TOTAL PROTEIN 6.2 g/dL (6.4-8.2); eGFR NON BLACK RACES > 60 (>60)
[2020-01-14 06:34] LABS: BASOPHILS % (AUTO) 0.2 % (0.2-1.0); EOSINOPHILS % (AUTO) 0.1 % (0.9-2.9); HEMATOCRIT 27.9 % (36.0-47.0); HEMOGLOBIN 9.1 g/dL (12.0-16.0); LYMPHOCYTES # (AUTO) 0.9 X10^3/uL (1.3-2.9); LYMPHOCYTES % (AUTO) 6.7 % (21.0-51.0); MEAN CORPUSCULAR HEMOGLOBIN 25.7 pg (27.0-34.0); MEAN CORPUSCULAR HGB CONC 32.4 g/dL (33.0-35.0); MEAN CORPUSCULAR VOLUME 79.1 fL (80.0-100.0); MEAN PLATELET VOLUME 7.1 fL (7.4-11.0); MONOCYTES # (AUTO) 0.9 x10^3/uL (0.3-0.8); MONOCYTES % (AUTO) 6.8 % (0.0-13.0); NEUTROPHILS # (AUTO) 11.2 x10^3/uL (2.2-4.8); NEUTROPHILS % (AUTO) 86.2 % (42.0-75.0); PLATELET COUNT 592 X10^3/uL (150.0-450.0); RED BLOOD COUNT 3.53 X10^6/uL (3.5-5.4)
[2020-01-14] MEDS: K-DUR TAB 20 MEQ PO PRN (06:50)
[2020-01-14 07:16] LABS: PLATELET MORPHOLOGY COMMENT NORMAL (NORMAL)
[2020-01-14] MEDS ORDERED: ZESTRIL TAB 20 MG ONE (09:05)
[2020-01-14] MEDS: PEPCID 20 MG IV PREMIX* 20 MG/50 ML BAG IV SCH ×2 (09:14→20:53)
[2020-01-14] MEDS: NICOTINE PATCH TD SCH (09:14)
[2020-01-14] MEDS: ASPIRIN EC 81 MG PO SCH (09:15)
[2020-01-14] MEDS: LEVSIN/MAALOX/LIDOC VISC PO SCH ×4 (09:15→20:43)
[2020-01-14] MEDS: ZESTRIL TAB 20 MG PO SCH (09:15)
[2020-01-14] MEDS: PROTONIX INJ 40 MG VIAL IVP SCH ×2 (09:17→20:43)
[2020-01-14] MEDS: PRED FORTE 1 % OP SCH ×2 (09:26→21:00)
[2020-01-14] MEDS: CARDIZEM CD 240 MG 24-HR PO SCH (10:59)
[2020-01-14] MEDS: KLONOPIN TAB 0.5 MG PO SCH (20:45)
[2020-01-14] MEDS: XALATAN OP SCH (20:54)
[2020-01-15] MEDS: NORCO 10/325 TAB PO PRN ×5 (05:18→23:34)
[2020-01-15] MEDS: ZOSYN VIAL 4.5 GRAMS 4.5 G in NS 100 ML IV + SPIKE MINIBAG* 100 ML IV SCH ×3 (05:18→21:51)
[2020-01-15 06:13] LABS: BASOPHILS % (AUTO) 0.2 % (0.2-1.0); EOSINOPHILS # (AUTO) 0.1 x10^3/uL (0.0-0.2); EOSINOPHILS % (AUTO) 0.4 % (0.9-2.9); HEMATOCRIT 29.1 % (36.0-47.0); HEMOGLOBIN 9.3 g/dL (12.0-16.0); LYMPHOCYTES # (AUTO) 0.8 X10^3/uL (1.3-2.9); LYMPHOCYTES % (AUTO) 6.2 % (21.0-51.0); MEAN CORPUSCULAR HEMOGLOBIN 25.8 pg (27.0-34.0); MEAN CORPUSCULAR VOLUME 80.5 fL (80.0-100.0); MONOCYTES # (AUTO) 0.8 x10^3/uL (0.3-0.8); MONOCYTES % (AUTO) 6.4 % (0.0-13.0); NEUTROPHILS # (AUTO) 11.3 x10^3/uL (2.2-4.8); NEUTROPHILS % (AUTO) 86.8 % (42.0-75.0); PLATELET COUNT 651 X10^3/uL (150.0-450.0); RED BLOOD COUNT 3.61 X10^6/uL (3.5-5.4); RED CELL DISTRIBUTION WIDTH 18.1 % (11.6-16.5)
[2020-01-15 06:36] LABS: ALANINE AMINOTRANSFERASE 32 Units/L (12-78); ALBUMIN 1.8 g/dL (3.4-5.0); ALKALINE PHOSPHATASE 139 Units/L (46-116); ASPARTATE AMINO TRANSFERASE 31 Units/L (15-37); BLOOD UREA NITROGEN 9 mg/dL (7-18); CALCIUM 8.1 mg/dL (8.5-10.1); CHLORIDE 112 mmol/L (98-107); COR CA(FOR HYPOALB) 9.9 mg/dL (8.5-10.1); CREATININE 0.59 mg/dL (0.55-1.02); SODIUM 146 mmol/L (136-145); TOTAL PROTEIN 6.2 g/dL (6.4-8.2); eGFR NON BLACK RACES > 60 (>60)
[2020-01-15 06:55] LABS: ANISOCYTOSIS SLIGHT; HYPOCHROMASIA SLIGHT; PLATELET MORPHOLOGY COMMENT NORMAL (NORMAL)
[2020-01-15] MEDS ORDERED: ZESTRIL TAB 20 MG ONE (09:35)
[2020-01-15] MEDS ORDERED: LANOXIN ONE (09:43)
[2020-01-15] MEDS: PROTONIX INJ 40 MG VIAL IVP SCH ×2 (09:51→21:50)
[2020-01-15] MEDS: LEVSIN/MAALOX/LIDOC VISC PO SCH ×4 (09:52→21:53)
[2020-01-15] MEDS: CARDIZEM CD 240 MG 24-HR PO SCH (09:53)
[2020-01-15] MEDS: ASPIRIN EC 81 MG PO SCH (09:53)
[2020-01-15] MEDS: PEPCID 20 MG IV PREMIX* 20 MG/50 ML BAG IV SCH ×2 (09:54→21:51)
[2020-01-15] MEDS: NICOTINE PATCH TD SCH (09:54)
[2020-01-15] MEDS: ZESTRIL TAB 20 MG PO SCH (09:55)
[2020-01-15] MEDS: PRED FORTE 1 % OP SCH ×2 (09:58→21:51)
[2020-01-15] MEDS: LANOXIN PO SCH (10:00)
[2020-01-15] MEDS: NS 1000 ML 1,000 ML IV SCH ×2 (10:58→21:49)
[2020-01-15] MEDS: KLONOPIN TAB 0.5 MG PO SCH (21:50)
[2020-01-15] MEDS: XALATAN OP SCH (21:51)
[2020-01-16 05:29] LABS: BASOPHILS % (AUTO) 0.5 % (0.2-1.0); EOSINOPHILS # (AUTO) 0.1 x10^3/uL (0.0-0.2); EOSINOPHILS % (AUTO) 0.7 % (0.9-2.9); HEMATOCRIT 31.1 % (36.0-47.0); HEMOGLOBIN 9.7 g/dL (12.0-16.0); LYMPHOCYTES # (AUTO) 0.6 X10^3/uL (1.3-2.9); LYMPHOCYTES % (AUTO) 6.8 % (21.0-51.0); MEAN CORPUSCULAR HEMOGLOBIN 24.8 pg (27.0-34.0); MEAN CORPUSCULAR HGB CONC 31.2 g/dL (33.0-35.0); MEAN CORPUSCULAR VOLUME 79.3 fL (80.0-100.0); MEAN PLATELET VOLUME 6.8 fL (7.4-11.0); MONOCYTES # (AUTO) 0.6 x10^3/uL (0.3-0.8); MONOCYTES % (AUTO) 7.2 % (0.0-13.0); NEUTROPHILS # (AUTO) 7.2 x10^3/uL (2.2-4.8); NEUTROPHILS % (AUTO) 84.8 % (42.0-75.0); PLATELET COUNT 709 X10^3/uL (150.0-450.0); RED BLOOD COUNT 3.93 X10^6/uL (3.5-5.4); RED CELL DISTRIBUTION WIDTH 18.6 % (11.6-16.5); WHITE BLOOD COUNT 8.5 X10^3/uL (3.6-10.0)
[2020-01-16 05:39] LABS: ALANINE AMINOTRANSFERASE 23 Units/L (12-78); ALBUMIN 1.8 g/dL (3.4-5.0); ALKALINE PHOSPHATASE 120 Units/L (46-116); ASPARTATE AMINO TRANSFERASE 21 Units/L (15-37); BLOOD UREA NITROGEN 8 mg/dL (7-18); CALCIUM 8.1 mg/dL (8.5-10.1); CARBON DIOXIDE 33.6 mmol/L (21-32); CHLORIDE 109 mmol/L (98-107); COR CA(FOR HYPOALB) 9.9 mg/dL (8.5-10.1); DIGOXIN 0.59 ng/mL (0.9-2); SODIUM 148 mmol/L (136-145); eGFR NON BLACK RACES > 60 (>60)
[2020-01-16 05:40] LABS: ANISOCYTOSIS SLIGHT; HYPOCHROMASIA SLIGHT; PLATELET MORPHOLOGY COMMENT NORMAL (NORMAL)
[2020-01-16] MEDS: ZOSYN VIAL 4.5 GRAMS 4.5 G in NS 100 ML IV + SPIKE MINIBAG* 100 ML IV SCH ×3 (05:44→21:28)
[2020-01-16] MEDS: XOPENEX 1.25 MG/3 ML NEBULE NEB SCH ×3 (08:30→17:20)
[2020-01-16] MEDS ORDERED: ZESTRIL TAB 20 MG ONE (08:39)
[2020-01-16] MEDS: PEPCID 20 MG IV PREMIX* 20 MG/50 ML BAG IV SCH ×2 (08:43→21:28)
[2020-01-16] MEDS: LEVSIN/MAALOX/LIDOC VISC PO SCH ×4 (08:43→21:25)
[2020-01-16] MEDS: PROTONIX INJ 40 MG VIAL IVP SCH ×2 (08:43→21:28)
[2020-01-16] MEDS: ZESTRIL TAB 20 MG PO SCH (08:44)
[2020-01-16] MEDS: ASPIRIN EC 81 MG PO SCH (08:44)
[2020-01-16] MEDS: NICOTINE PATCH TD SCH (08:45)
[2020-01-16] MEDS: CARDIZEM CD 240 MG 24-HR PO SCH (08:45)
[2020-01-16] MEDS: LANOXIN PO SCH (08:45)
[2020-01-16] MEDS: PRED FORTE 1 % OP SCH ×2 (08:51→21:29)
--- NOTE | 2020-01-16 13:13 | RAD ---
HISTORYSOBSTUDYCHEST, 1 VIEWCOMPARISONFebruary 2019FINDINGSThe trachea is midline. The cardiac silhouette is enlarged but stable as is a taken a or. The lungs demonstrate interval development a right perihilar infiltrate compatible pneumonia.. The bony thorax is unremarkable.IMPRESSIONNew right perihilar infiltrate compatible pneumoniaElectronically signed by: MERY HERNANDEZ (Jan 16, 2020 13:12:38)
[2020-01-16] MEDS: NS 1000 ML 1,000 ML IV SCH (13:48)
[2020-01-16] MEDS: NORCO 10/325 TAB PO PRN ×2 (15:10→21:26)
[2020-01-16] MEDS: LASIX IVP SCH (17:51)
[2020-01-16] MEDS: K-DUR TAB 20 MEQ PO PRN (17:52)
[2020-01-16] MEDS: KLONOPIN TAB 0.5 MG PO SCH (21:27)
[2020-01-16] MEDS: XALATAN OP SCH (21:28)
--- NOTE | 2020-01-16 21:30 | PCM.PROG ---
Progress Note - Progress Note for Day of Date of Exam: 01/14/20 - Subjective Subjective: IS BEING TREATED FOR A-FIB WITH RVR, ANEMIA, AND LEUKOCYTOSIS. TODAY, SHE IS ALERT AND ORIENTED, LYING IN BED ON MORNING ROUNDS. SHE REMAINS ON A CARDIZEM DRIP THIS MORNING. ON EXAMINATION, HEART RHYTHM IS IRREGULAR. RATE IS NOTED TO BE 100-115 BPM. BILATERAL LUNGS ARE NOTED WITH DIM INISHED LUNG SOUNDS THROUGHOUT. ABDOMEN IS ROUND, SOFT, AND NOTED WITH DIFFUSE TENDERNESS. NORMAL BOWEL SOUNDS ARE NOTED IN ALL QUADRANTS. HER VITALS THIS MORNING ARE: 97.8-82-20-98%-127/76. LABS WERE OBTAINED. ABNORMAL LAB VALUES INCLUDE THE FOLLOWING: WBC 13.0, HGB 9.1, HCT 27.9, SODIUM 146, CHLORIDE 112, GLUCOSE 115, CALCIUM 8.0, AST 65, ALK PHOS 153, TOTAL PROTEIN 6.2, ALBUMIN 1.8. URINE, BLOOD, AND STOOL CULTURES ARE PENDING. AN EGD WAS PERFORMED YESTERDAY AND REVEALED: Distal esophageal ulcers with a stricture, small 2 cm hiatal hernia, gastric ulcers at the lower margin of the hiatal hernia, antral gastritis. SHE IS CURRENTLY RECEIVING NS AT 75ML/HR, ZOSYN 4.5G IV TID, THE POTASSIUM AND MAGNESIUM PROTOCOLS, PEPCID IV, PROTONIX IV, GI COCKTAIL, CARDIZEM DRIP, VALIUM 5MG IV Q8H PRN, AND HOME MEDICATIONS WERE RESUMED. TODAY, WE WILL START CARDIZEM CD 240MG PO DAILY AND WEAN HER OFF OF THE CARDIZEM DRIP. OTHERWISE, WE PLAN TO FOLLOW UP WITH AM LABS AND CONTINUE TO MONITOR. - Past Medical Family Social History Past Med/Fam/Surg Hx: No changes since H&P Allergies: Allergies No Known Drug Allergies Allergy (Verified 01/11/20 17:18) - Review of Systems ROS: No change since H&P - Vital Signs and I&O's Vital Signs: Temperature 98.9 F Pulse Rate [Apical] 167 Pulse Rate 115 Respiratory Rate 24 Blood Pressure [Left Arm] 169/106 Blood Pressure 143/83 O2 Sat by Pulse Oximetry 97 Intake and Output: Intake & Output 01/14/20 01/15/20 01/16/20 01/17/20 11:59 11:59 11:59 11:59 Intake Total 2052 / 2053 1850 / 1850 670 / 670 Balance 2052 670 / 670 - Physical Exam Oriented: Normal Eyes: Normal Ear: Normal Nose: Normal Throat: Normal Cardiovascular: Tachycardia, Irregular. negative: S3, S4, Murmur : Normal Auscultation: Bowel Sounds: Normal Tenderness: Epigastric Skin: Normal Musculoskeletal: Normal Psychiatric: Normal Mood Description: Calm, Appropriate Affect: Normal Speech Pattern: Clear - Laboratory and Diagnostics Result Diagrams: 01/16/20 04:23 01/16/20 04:23 Labs: 01/16/20 17:32 Sputum - Expectorated Sputum - Final 01/12/20 13:45 Stool Stool Culture - Final 01/12/20 13:45 Stool - Final 01/12/20 12:00 Blood Blood Culture - Preliminary 01/12/20 11:55 Blood Blood Culture - Preliminary 01/12/20 13:45 Urine,Clean Catch Urine Culture - Final Laboratory WBC 8.5 X10^3/uL (3.6-10.0) 01/16/20 04:23 RBC 3.93 X10^6/uL (3.5-5.4) 01/16/20 04:23 Hgb 9.7 g/dL (12.0-16.0) L 01/16/20 04:23 Hct 31.1 % (36.0-47.0) L 01/16/20 04:23 MCV 79.3 fL (80.0-100.0) L 01/16/20 04:23 MCH 24.8 pg (27.0-34.0) L 01/16/20 04:23 MCHC 31.2 g/dL (33.0-35.0) L 01/16/20 04:23 RDW 18.6 % (11.6-16.5) H 01/16/20 04:23 Plt Count 709 X10^3/uL (150.0-450.0) H 01/16/20 04:23 Plt Count Comment Increased (ADEQUATE) A 01/16/20 04:23 MPV 6.8 fL (7.4-11.0) L 01/16/20 04:23 Neut % (Auto) 84.8 % (42.0-75.0) H 01/16/20 04:23 Lymph % (Auto) 6.8 % (21.0-51.0) L 01/16/20 04:23 [place] % (Auto) 7.2 % (0.0-13.0) 01/16/20 04:23 Eos % (Auto) 0.7 % (0.9-2.9) L 01/16/20 04:23 Baso % (Auto) 0.5 % (0.2-1.0) 01/16/20 04:23 Neut # (Auto) 7.2 x10^3/uL (2.2-4.8) H 01/16/20 04:23 Lymph # (Auto) 0.6 X10^3/uL (1.3-2.9) L 01/16/20 04:23 [place] # (Auto) 0.6 x10^3/uL (0.3-0.8) 01/16/20 04:23 Eos # (Auto) 0.1 x10^3/uL (0.0-0.2) 01/16/20 04:23 Baso # (Auto) 0.0 X10^3/uL (0.0-0.1) 01/16/20 04:23 Absolute Nucleated RBC 0.1 /100WBC 01/16/20 04:23 Plt Morphology Comment Normal (NORMAL) 01/16/20 04:23 RBC Morphology Abnormal (NORMAL) A 01/16/20 04:23 Hypochromasia Slight A 01/16/20 04:23 Anisocytosis Slight A 01/16/20 04:23 Microcytosis Slight A 01/11/20 18:15 Ovalocytes Present 01/13/20 04:56 Schistocytes Slight A 01/11/20 18:15 Sodium 148 mmol/L (136-145) H 01/16/20 04:23 Corrected Sodium TNP 01/16/20 04:23 Potassium 3.6 mmol/L (3.5-5.1) 01/16/20 04:23 Chloride 109 mmol/L (98-107) H 01/16/20 04:23 Carbon Dioxide 33.6 mmol/L (21-32) H 01/16/20 04:23 BUN 8 mg/dL (7-18) 01/16/20 04:23 Creatinine 0.60 mg/dL (0.55-1.02) 01/16/20 04:23 Est GFR (MDRD) Af Amer > 60 (>60) 01/16/20 04:23 Est GFR (MDRD) Non-Af > 60 (>60) 01/16/20 04:23 Glucose 92 mg/dL (65-99) 01/16/20 04:23 Calcium 8.1 mg/dL (8.5-10.1) L 01/16/20 04:23 Corrected Calcium 9.9 mg/dL (8.5-10.1) 01/16/20 04:23 Magnesium 2.1 mg/dL (1.7-2.9) 01/12/20 04:20 Iron 12 ug/dL (50-175) L 01/11/20 18:15 TIBC 250 ug/dL (250-450) 01/11/20 18:15 TIBC Cancelled 01/11/20 18:15 % Saturation 4.8 % (11.0-46.0) L 01/11/20 18:15 Ferritin 113 ng/mL (8-252) 01/11/20 18:15 Total Bilirubin 0.40 mg/dL (0.2-1.0) 01/16/20 04:23 AST 21 Units/L (15-37) 01/16/20 04:23 ALT 23 Units/L (12-78) 01/16/20 04:23 Alkaline Phosphatase 120 Units/L (46-116) H 01/16/20 04:23 Creatine Kinase 41 Units/L (26-192) 01/11/20 18:15 CK-MB (CK-2) 1.9 ng/mL (0-4.0) 01/11/20 18:15 CK/CKMB % Calc 4.6 % (<4) 01/11/20 18:15 Troponin I < 0.02 ng/mL (0-1.5) 01/11/20 18:15 Total Protein 6.0 g/dL (6.4-8.2) L 01/16/20 04:23 Albumin 1.8 g/dL (3.4-5.0) L 01/16/20 04:23 Globulin 4.2 g/dL (2.5-4.5) 01/16/20 04:23 Albumin/Globulin Ratio 0.4 Ratio (1.1-2.1) L 01/16/20 04:23 Specimen Type Catherized urine 01/13/20 18:05 Urine Color Yellow (YELLOW) 01/13/20 18:05 Urine Appearance Slightly hazy (CLEAR) 01/13/20 18:05 Urine pH 5.0 (5.0 - 8.0) 01/13/20 18:05 Ur Specific [place] 1.015 (1.000-1.030) 01/13/20 18:05 Urine Protein 2+ (NEGATIVE) 01/13/20 18:05 Urine Glucose (UA) Negative (NEGATIVE) 01/13/20 18:05 Urine Ketones Negative (NEGATIVE) 01/13/20 18:05 Urine Occult Blood 1+ (NEGATIVE) 01/13/20 18:05 Urine Nitrite Negative (NEGATIVE) 01/13/20 18: Urine Bilirubin Negative (NEGATIVE) 01/13/20 18:05 Urine Urobilinogen Normal (NORMAL) 01/13/20 18:05 Ur Leukocyte Esterase Negative (NEGATIVE) 01/13/20 18:05 Urine RBC 0-2 /HPF (0-3) 01/13/20 18:05 Urine WBC 0-2 /HPF (0-5) 01/13/20 18:05 Ur Squamous Epith Cells Rare /HPF (NEGATIVE) 01/13/20 18:05 Amorphous Sediment Trace /HPF (NEGATIVE) 01/13/20 18:05 Urine Bacteria Trace /HPF (NEGATIVE) 01/13/20 18:05 Urine Mucus Few /HPF (NEGATIVE) 01/12/20 13:45 Ur Culture Indicated? No/not indicated 01/13/20 18:05 Stool Description Fob tube 01/12/20 11:15 Stl Occult Blood (IFOB) Positive (NEGATIVE) A 01/12/20 11:15 Digoxin 0.59 ng/mL (0.9-2) L 01/16/20 04:23 Tissue Pathology To follow 01/13/20 13:30 Blood Type O POSITIVE 01/11/20 19:26 Antibody Screen Negative 01/11/20 19:26 Crossmatch See Detail 01/11/20 19:26 - Plan (1) Atrial fibrillation with RVR Status: Acute Plan: NS AT 75 ML/HR, CARDIZEM CD 240MG PO DAILY, IV ZOSYN, THE POTASSIUM AND MAGNESIUM PROTOCOLS, PEPCID IV, PROTONIX IV, GI COCKTAIL, AND HOME MEDICATIONS WERE RESUMED, OBTAIN CULTURES (2) Anemia Status: Acute Qualifiers: Anemia type: iron deficiency Iron deficiency anemia type: unspecified iron deficiency Qualified Code(s): D50.9 - Iron deficiency anemia, unspecified (3) Leukocytosis Status: Acute Qualifiers: Leukocytosis type: unspecified Qualified Code(s): D72.829 - Elevated white blood cell count, unspecified
[2020-01-17] MEDS: XOPENEX 1.25 MG/3 ML NEBULE NEB SCH ×4 (00:44→18:08)
[2020-01-17] MEDS: NS 1000 ML 1,000 ML IV SCH ×2 (01:34→16:06)
[2020-01-17] MEDS: LASIX IVP SCH (04:19)
[2020-01-17 05:23] LABS: BASOPHILS # (AUTO) 0.1 X10^3/uL (0.0-0.1); BASOPHILS % (AUTO) 0.9 % (0.2-1.0); EOSINOPHILS # (AUTO) 0.1 x10^3/uL (0.0-0.2); EOSINOPHILS % (AUTO) 1.1 % (0.9-2.9); HEMATOCRIT 30.5 % (36.0-47.0); HEMOGLOBIN 10.1 g/dL (12.0-16.0); LYMPHOCYTES % (AUTO) 11.7 % (21.0-51.0); MEAN CORPUSCULAR HEMOGLOBIN 26.1 pg (27.0-34.0); MEAN CORPUSCULAR VOLUME 79.2 fL (80.0-100.0); MEAN PLATELET VOLUME 6.8 fL (7.4-11.0); MONOCYTES # (AUTO) 0.6 x10^3/uL (0.3-0.8); MONOCYTES % (AUTO) 6.6 % (0.0-13.0); NEUTROPHILS # (AUTO) 6.9 x10^3/uL (2.2-4.8); NEUTROPHILS % (AUTO) 79.7 % (42.0-75.0); PLATELET COUNT 777 X10^3/uL (150.0-450.0); RED BLOOD COUNT 3.85 X10^6/uL (3.5-5.4); RED CELL DISTRIBUTION WIDTH 18.6 % (11.6-16.5); WHITE BLOOD COUNT 8.7 X10^3/uL (3.6-10.0)
[2020-01-17 05:39] LABS: ALANINE AMINOTRANSFERASE 26 Units/L (12-78); ALBUMIN 1.9 g/dL (3.4-5.0); ALKALINE PHOSPHATASE 116 Units/L (46-116); ASPARTATE AMINO TRANSFERASE 27 Units/L (15-37); BLOOD UREA NITROGEN 7 mg/dL (7-18); CARBON DIOXIDE 33.8 mmol/L (21-32); CHLORIDE 104 mmol/L (98-107); COR CA(FOR HYPOALB) 9.7 mg/dL (8.5-10.1); CREATININE 0.64 mg/dL (0.55-1.02); SODIUM 143 mmol/L (136-145); TOTAL PROTEIN 6.2 g/dL (6.4-8.2); eGFR NON BLACK RACES > 60 (>60)
[2020-01-17 05:42] LABS: PLATELET MORPHOLOGY COMMENT NORMAL (NORMAL)
[2020-01-17] MEDS: ZOSYN VIAL 4.5 GRAMS 4.5 G in NS 100 ML IV + SPIKE MINIBAG* 100 ML IV SCH ×3 (06:12→21:36)
[2020-01-17] MEDS: K-DUR TAB 20 MEQ PO PRN (06:12)
[2020-01-17] MEDS ORDERED: ZESTRIL TAB 20 MG ONE (08:50)
[2020-01-17] MEDS: PROTONIX INJ 40 MG VIAL IVP SCH ×2 (08:56→20:42)
[2020-01-17] MEDS: PEPCID 20 MG IV PREMIX* 20 MG/50 ML BAG IV SCH ×2 (08:56→20:41)
[2020-01-17] MEDS: LANOXIN PO SCH (08:57)
[2020-01-17] MEDS: CARDIZEM CD 240 MG 24-HR PO SCH (08:58)
[2020-01-17] MEDS: ASPIRIN EC 81 MG PO SCH (08:58)
[2020-01-17] MEDS: LEVSIN/MAALOX/LIDOC VISC PO SCH ×4 (08:58→20:40)
[2020-01-17] MEDS: ZESTRIL TAB 20 MG PO SCH (08:58)
[2020-01-17] MEDS: NICOTINE PATCH TD SCH (08:59)
[2020-01-17] MEDS: PRED FORTE 1 % OP SCH ×2 (09:00→20:41)
[2020-01-17] MEDS: TOPROL XL PO SCH (09:41)
--- NOTE | 2020-01-17 13:17 | PCM.PROG ---
Progress Note - Progress Note for Day of Date of Exam: 01/15/20 - Subjective Subjective: IS BEING TREATED FOR A-FIB WITH RVR, ANEMIA, AND LEUKOCYTOSIS. TODAY, SHE IS ALERT AND ORIENTED, LYING IN BED ON MORNING ROUNDS. SHE WAS CONVERTED TO PO CARDIZEM YESTERDAY. SHE CONTINUES TO BE TACHYCARDIC THIS MORNING. ON EXAMINATION, HEART RHYTHM IS IRREGULAR. RATE IS NOTED TO BE 100-120 BPM. BILATERAL LUNGS ARE NOTED WITH DIMINISHED LUNG SOUNDS THROUGHOUT. ABDOMEN IS ROUND, SOFT, AND NOTED WITH DIFFUSE TENDERNESS. NORMAL BOWEL SOUNDS ARE NOTED IN ALL QUADRANTS. HER VITALS THIS MORNING ARE: 98.7-114-28-93%[place]-169/99. LABS WERE OBTAINED. ABNORMAL LAB VALUES INCLUDE THE FOLLOWING: WBC 13.0, HGB 9.3, HCT 29.1, PLT COUNT 709, SODIUM 146, CHLORIDE 112, GLUCOSE 107, CALCIUM 8.1,. ALK PHOS 139, TOTAL PROTEIN 6.1, ALBUMIN 1.8. URINE, BLOOD, AND STOOL CULTURES ARE PENDING. SHE IS CURRENTLY RECEIVING NS AT 75ML/HR, ZOSYN 4.5G IV TID, THE POTASSIUM AND MAGNESIUM PROTOCOLS, PEPCID IV, PROTONIX IV, GI COCKTAIL, CARDIZEM DRIP, VALIUM 5MG IV Q8H PRN, AND HOME MEDICATIONS WERE RESUMED. TODAY, WE WILL DIGOXIN 0.125MG PO DAILY. OTHERWISE, WE WILL CONTINUE WITH CURRENT PLAN OF CARE. WE PLAN TO FOLLOW UP WITH AM LABS AND CONTINUE TO MONITOR. - Past Medical Family Social History Past Med/Fam/Surg Hx: No changes since H&P Allergies: Allergies No Known Drug Allergies Allergy (Verified 01/11/20 17:18) - Review of Systems ROS: No change since H&P - Vital Signs and I&O's Vital Signs: Temperature 98.5 F Pulse Rate [Apical] 167 Pulse Rate 128 Respiratory Rate 21 Blood Pressure [Left Arm] 169/106 Blood Pressure 141/87 O2 Sat by Pulse Oximetry 96 Intake and Output: Intake & Output 01/15/20 01/16/20 01/17/20 01/18/20 11:59 11:59 11:59 11:59 Intake Total 1850 / 1850 670 / 670 1226 / 1226 734 / 734 Output Total 4200 / 4200 Balance 1850 / 1850 670 / 670 -2974 / -2974 734 / 734 - Physical Exam Oriented: Normal Eyes: Normal Ear: Normal Nose: Normal Throat: Normal Cardiovascular: Tachycardia, Irregular. negative: S3, S4, Murmur : Normal Auscultation: Bowel Sounds: Normal Palpation: Normal Tenderness: Epigastric Skin: Normal Musculoskeletal: Normal Psychiatric: Normal Mood Description: Calm, Appropriate Affect: Normal Speech Pattern: Clear - Laboratory and Diagnostics Result Diagrams: 01/17/20 04:07 01/17/20 04:07 Labs: 01/12/20 12:00 Blood Blood Culture - Final 01/12/20 11:55 Blood Blood Culture - Final 01/16/20 17:32 Sputum - Expectorated Sputum - Final 01/12/20 13:45 Stool Stool Culture - Final 01/12/20 13:45 Stool - Final 01/12/20 13:45 Urine,Clean Catch Urine Culture - Final Laboratory WBC 8.7 X10^3/uL (3.6-10.0) 01/17/20 04:07 RBC 3.85 X10^6/uL (3.5-5.4) 01/17/20 04:07 Hgb 10.1 g/dL (12.0-16.0) L 01/17/20 04:07 Hct 30.5 % (36.0-47.0) L 01/17/20 04:07 MCV 79.2 fL (80.0-100.0) L 01/17/20 04:07 MCH 26.1 pg (27.0-34.0) L 01/17/20 04:07 MCHC 33.0 g/dL (33.0-35.0) 01/17/20 04:07 RDW 18.6 % (11.6-16.5) H 01/17/20 04:07 Plt Count 777 X10^3/uL (150.0-450.0) H 01/17/20 04:07 Plt Count Comment Increased (ADEQUATE) A 01/17/20 04:07 MPV 6.8 fL (7.4-11.0) L 01/17/20 04:07 Neut % (Auto) 79.7 % (42.0-75.0) H 01/17/20 04:07 Lymph % (Auto) 11.7 % (21.0-51.0) L 01/17/20 04:07 [place] % (Auto) 6.6 % (0.0-13.0) 01/17/20 04:07 Eos % (Auto) 1.1 % (0.9-2.9) 01/17/20 04:07 Baso % (Auto) 0.9 % (0.2-1.0) 01/17/20 04:07 Neut # (Auto) 6.9 x10^3/uL (2.2-4.8) H 01/17/20 04:07 Lymph # (Auto) 1.0 X10^3/uL (1.3-2.9) L 01/17/20 04:07 [place] # (Auto) 0.6 x10^3/uL (0.3-0.8) 01/17/20 04:07 Eos # (Auto) 0.1 x10^3/uL (0.0-0.2) 01/17/20 04:07 Baso # (Auto) 0.1 X10^3/uL (0.0-0.1) 01/17/20 04:07 Absolute Nucleated RBC 0.0 /100WBC 01/17/20 04:07 Plt Morphology Comment Normal (NORMAL) 01/17/20 04:07 RBC Morphology Normal (NORMAL) 01/17/20 04:07 Hypochromasia Slight A 01/16/20 04:23 Anisocytosis Slight A 01/16/20 04:23 Microcytosis Slight A 01/11/20 18:15 Ovalocytes Present 01/13/20 04:56 Schistocytes Slight A 01/11/20 18:15 Sodium 143 mmol/L (136-145) 01/17/20 04:07 Corrected Sodium TNP 01/17/20 04:07 Potassium 3.7 mmol/L (3.5-5.1) 01/17/20 04:07 Chloride 104 mmol/L (98-107) 01/17/20 04:07 Carbon Dioxide 33.8 mmol/L (21-32) H 01/17/20 04:07 BUN 7 mg/dL (7-18) 01/17/20 04:07 Creatinine 0.64 mg/dL (0.55-1.02) 01/17/20 04:07 Est GFR (MDRD) Af Amer > 60 (>60) 01/17/20 04:07 Est GFR (MDRD) Non-Af > 60 (>60) 01/17/20 04:07 Glucose 81 mg/dL (65-99) 01/17/20 04:07 Calcium 8.0 mg/dL (8.5-10.1) L 01/17/20 04:07 Corrected Calcium 9.7 mg/dL (8.5-10.1) 01/17/20 04:07 Magnesium 2.3 mg/dL (1.7-2.9) 01/17/20 04:07 Iron 12 ug/dL (50-175) L 01/11/20 18:15 TIBC 250 ug/dL (250-450) 01/11/20 18:15 TIBC Cancelled 01/11/20 18:15 % Saturation 4.8 % (11.0-46.0) L 01/11/20 18:15 Ferritin 113 ng/mL (8-252) 01/11/20 18:15 Total Bilirubin 0.40 mg/dL (0.2-1.0) 01/17/20 04:07 AST 27 Units/L (15-37) 01/17/20 04:07 ALT 26 Units/L (12-78) 01/17/20 04:07 Alkaline Phosphatase 116 Units/L (46-116) 01/17/20 04:07 Creatine Kinase 41 Units/L (26-192) 01/11/20 18:15 CK-MB (CK-2) 1.9 ng/mL (0-4.0) 01/11/20 18:15 CK/CKMB % Calc 4.6 % (<4) 01/11/20 18:15 Troponin I < 0.02 ng/mL (0-1.5) 01/11/20 18:15 Total Protein 6.2 g/dL (6.4-8.2) L 01/17/20 04:07 Albumin 1.9 g/dL (3.4-5.0) L 01/17/20 04:07 Globulin 4.3 g/dL (2.5-4.5) 01/17/20 04:07 Albumin/Globulin Ratio 0.4 Ratio (1.1-2.1) L 01/17/20 04:07 Specimen Type Catherized urine 01/13/20 18:05 Urine Color Yellow (YELLOW) 01/13/20 18:05 Urine Appearance Slightly hazy (CLEAR) 01/13/20 18:05 Urine pH 5.0 (5.0 - 8.0) 01/13/20 18:05 Ur Specific [place] 1.015 (1.000-1.030) 01/13/20 18:05 Urine Protein 2+ (NEGATIVE) 01/13/20 18:05 Urine Glucose (UA) Negative (NEGATIVE) 01/13/20 18:05 Urine Ketones Negative (NEGATIVE) 01/13/20 18:05 Urine Occult Blood 1+ (NEGATIVE) 01/13/20 18:05 Urine Nitrite Negative (NEGATIVE) 01/13/20 18:05 Urine Bilirubin Negative (NEGATIVE) 01/13/20 18:05 Urine Urobilinogen Normal (NORMAL) 01/13/20 18:05 Ur Leukocyte Esterase Negative (NEGATIVE) 01/13/20 18:05 Urine RBC 0-2 /HPF (0-3) 01/13/20 18:05 Urine WBC 0-2 /HPF (0-5) 01/13/20 18:05 Ur Squamous Epith Cells Rare /HPF (NEGATIVE) 01/13/20 18:05 Amorphous Sediment Trace /HPF (NEGATIVE) 01/13/20 18:05 Urine Bacteria Trace /HPF (NEGATIVE) 01/13/20 18:05 Urine Mucus Few /HPF (NEGATIVE) 01/12/20 13:45 Ur Culture Indicated? No/not indicated 01/13/20 18:05 Stool Description Fob tube 01/12/20 11:15 Stl Occult Blood (IFOB) Positive (NEGATIVE) A 01/12/20 11:15 Digoxin 0.59 ng/mL (0.9-2) L 01/16/20 04:23 Tissue Pathology To follow 01/13/20 13:30 Blood Type O POSITIVE 01/11/20 19:26 Antibody Screen Negative 01/11/20 19:26 Crossmatch See Detail 01/11/20 19:26 - Plan (1) Atrial fibrillation with RVR Status: Acute Plan: NS AT 75 ML/HR, CARDIZEM CD 240MG PO DAILY, DIGOXIN 0.125MG PO DAILY, IV ZOSYN, THE POTASSIUM AND MAGNESIUM PROTOCOLS, PEPCID IV, PROTONIX IV, GI COCKTAIL, AND HOME MEDICATIONS WERE RESUMED, OBTAIN CULTURES (2) Anemia Status: Acute Qualifiers: Anemia type: iron deficiency Iron deficiency anemia type: unspecified iron deficiency Qualified Code(s): D50.9 - Iron deficiency anemia, unspecified (3) Leukocytosis Status: Acute Qualifiers: Leukocytosis type: unspecified Qualified Code(s): D72.829 - Elevated white blood cell count, unspecified Plan: ZOSYN 4.5G IV TID, CONTINUE TO MONITOR
--- NOTE | 2020-01-17 13:37 | PCM.PROG ---
Progress Note - Progress Note for Day of Date of Exam: 01/16/20 - Subjective Subjective: IS BEING TREATED FOR A-FIB WITH RVR, ANEMIA, AND LEUKOCYTOSIS. TODAY, SHE IS ALERT AND ORIENTED, LYING IN BED ON MORNING ROUNDS. SHE REPORTS SHORTNESS OF BREATH AND COUGH TODAY. SHE CONTINUES TO BE TACHYCARDIC THIS MORNING. ON EXAMINATION, HEART RHYTHM IS IRREGULAR. RATE IS NOTED TO BE IN THE 120S. BILATERAL LUNGS ARE NOTED WITH DIMINISHED LUNG SOUNDS THROUGHOUT. ABDOMEN IS ROUND, SOFT, AND NOTED WITH DIFFUSE TENDERNESS. NORMAL BOWEL SOUNDS ARE NOTED IN ALL QUADRANTS. HER VITALS THIS MORNING ARE: 98.0-128-3-97%-155/92. LABS WERE OBTAINED. ABNORMAL LAB VALUES INCLUDE THE FOLLOWING: HGB 9.7, HCT 31.1, PLT COUNT 709, SODIUM 148, CHLORIDE 109, CARBON DIOIXDE 33.6, CALCIUM 8.1, ALK PHOS 120, TOTAL PROTEIN 6.0, ALBUMIN 1.8, DIGOXIN 0.59. URINE, BLOOD, AND STOOL CULTURES ARE PENDING. A SPUTUM CULTURE WAS COLLECTED TODAY. A CHEST XRAY WAS OBTAINED AND REVEALED: New right perihilar infiltrate compatible pneumonia. SHE IS CURRENTLY RECEIVING NS AT 75ML/HR, ZOSYN 4.5G IV TID, THE POTASSIUM AND MAGNESIUM PROTOCOLS, PEPCID IV, PROTONIX IV, GI COCKTAIL, CARDIZEM 240MG PO DAILY, DIGOXIN 0.125MG PO DAILY, VALIUM 5MG IV Q8H PRN, AND HOME MEDICATIONS WERE RESUMED. WE WILL ADD XOPENEX RESPIRATORY TREATMENTS TODAY. OTHERWISE, WE WILL CONTINUE WITH CURRENT PLAN OF CARE. WE PLAN TO FOLLOW UP WITH AM LABS AND CONTINUE TO MONITOR. - Past Medical Family Social History Past Med/Fam/Surg Hx: No changes since H&P Allergies: Allergies No Known Drug Allergies Allergy (Verified 01/11/20 17:18) - Review of Systems ROS: No change since H&P - Vital Signs and I&O's Vital Signs: Temperature 98.5 F Pulse Rate [Apical] 167 Pulse Rate 128 Respiratory Rate 21 Blood Pressure [Left Arm] 169/106 Blood Pressure 141/87 O2 Sat by Pulse Oximetry 96 Intake and Output: Intake & Output 01/15/20 01/16/20 01/17/20 01/18/20 11:59 11:59 11:59 11:59 Intake Total 1850 / 1850 670 / 670 1226 / 1226 734 / 734 Output Total 4200 / 4200 Balance 1850 / 1850 670 / 670 -2974 / -2974 734 / 734 - Physical Exam Oriented: Normal Eyes: Normal Ear: Normal Nose: Normal Throat: Normal Respiratory: Generalized, Diminished Cardiovascular: Tachycardia, Irregular. negative: S3, S4, Murmur : Normal Auscultation: Bowel Sounds: Normal Palpation: Normal Tenderness: Epigastric Skin: Normal Musculoskeletal: Normal Psychiatric: Normal Mood Description: Calm, Appropriate Affect: Normal Speech Pattern: Clear - Laboratory and Diagnostics Result Diagrams: 01/17/20 04:07 01/17/20 04:07 Labs: 01/12/20 12:00 Blood Blood Culture - Final 01/12/20 11:55 Blood Blood Culture - Final 01/16/20 17:32 Sputum - Expectorated Sputum - Final 01/12/20 13:45 Stool Stool Culture - Final 01/12/20 13:45 Stool - Final 01/12/20 13:45 Urine,Clean Catch Urine Culture - Final Laboratory WBC 8.7 X10^3/uL (3.6-10.0) 01/17/20 04:07 RBC 3.85 X10^6/uL (3.5-5.4) 01/17/20 04:07 Hgb 10.1 g/dL (12.0-16.0) L 01/17/20 04:07 Hct 30.5 % (36.0-47.0) L 01/17/20 04:07 MCV 79.2 fL (80.0-100.0) L 01/17/20 04:07 MCH 26.1 pg (27.0-34.0) L 01/17/20 04:07 MCHC 33.0 g/dL (33.0-35.0) 01/17/20 04:07 RDW 18.6 % (11.6-16.5) H 01/17/20 04:07 Plt Count 777 X10^3/uL (150.0-450.0) H 01/17/20 04:07 Plt Count Comment Increased (ADEQUATE) A 01/17/20 04:07 MPV 6.8 fL (7.4-11.0) L 01/17/20 04:07 Neut % (Auto) 79.7 % (42.0-75.0) H 01/17/20 04:07 Lymph % (Auto) 11.7 % (21.0-51.0) L 01/17/20 04:07 [place] % (Auto) 6.6 % (0.0-13.0) 01/17/20 04:07 Eos % (Auto) 1.1 % (0.9-2.9) 01/17/20 04:07 Baso % (Auto) 0.9 % (0.2-1.0) 01/17/20 04:07 Neut # (Auto) 6.9 x10^3/uL (2.2-4.8) H 01/17/20 04:07 Lymph # (Auto) 1.0 X10^3/uL (1.3-2.9) L 01/17/20 04:07 [place] # (Auto) 0.6 x10^3/uL (0.3-0.8) 01/17/20 04:07 Eos # (Auto) 0.1 x10^3/uL (0.0-0.2) 01/17/20 04:07 Baso # (Auto) 0.1 X10^3/uL (0.0-0.1) 01/17/20 04:07 Absolute Nucleated RBC 0.0 /100WBC 01/17/20 04:07 Plt Morphology Comment Normal (NORMAL) 01/17/20 04:07 RBC Morphology Normal (NORMAL) 01/17/20 04:07 Hypochromasia Slight A 01/16/20 04:23 Anisocytosis Slight A 01/16/20 04:23 Microcytosis Slight A 01/11/20 18:15 Ovalocytes Present 01/13/20 04:56 Schistocytes Slight A 01/11/20 18:15 Sodium 143 mmol/L (136-145) 01/17/20 04:07 Corrected Sodium TNP 01/17/20 04:07 Potassium 3.7 mmol/L (3.5-5.1) 01/17/20 04:07 Chloride 104 mmol/L (98-107) 01/17/20 04:07 Carbon Dioxide 33.8 mmol/L (21-32) H 01/17/20 04:07 BUN 7 mg/dL (7-18) 01/17/20 04:07 Creatinine 0.64 mg/dL (0.55-1.02) 01/17/20 04:07 Est GFR (MDRD) Af Amer > 60 (>60) 01/17/20 04:07 Est GFR (MDRD) Non-Af > 60 (>60) 01/17/20 04:07 Glucose 81 mg/dL (65-99) 01/17/20 04:07 Calcium 8.0 mg/dL (8.5-10.1) L 01/17/20 04:07 Corrected Calcium 9.7 mg/dL (8.5-10.1) 01/17/20 04:07 Magnesium 2.3 mg/dL (1.7-2.9) 01/17/20 04:07 Iron 12 ug/dL (50-175) L 01/11/20 18:15 TIBC 250 ug/dL (250-450) 01/11/20 18:15 TIBC Cancelled 01/11/20 18:15 % Saturation 4.8 % (11.0-46.0) L 01/11/20 18:15 Ferritin 113 ng/mL (8-252) 01/11/20 18:15 Total Bilirubin 0.40 mg/dL (0.2-1.0) 01/17/20 04:07 AST 27 Units/L (15-37) 01/17/20 04:07 ALT 26 Units/L (12-78) 01/17/20 04:07 Alkaline Phosphatase 116 Units/L (46-116) 01/17/20 04:07 Creatine Kinase 41 Units/L (26-192) 01/11/20 18:15 CK-MB (CK-2) 1.9 ng/mL (0-4.0) 01/11/20 18:15 CK/CKMB % Calc 4.6 % (<4) 01/11/20 18:15 Troponin I < 0.02 ng/mL (0-1.5) 01/11/20 18:15 Total Protein 6.2 g/dL (6.4-8.2) L 01/17/20 04:07 Albumin 1.9 g/dL (3.4-5.0) L 01/17/20 04:07 Globulin 4.3 g/dL (2.5-4.5) 01/17/20 04:07 Albumin/Globulin Ratio 0.4 Ratio (1.1-2.1) L 01/17/20 04:07 Specimen Type Catherized urine 01/13/20 18:05 Urine Color Yellow (YELLOW) 01/13/20 18:05 Urine Appearance Slightly hazy (CLEAR) 01/13/20 18:05 Urine pH 5.0 (5.0 - 8.0) 01/13/20 18:05 Ur Specific [place] 1.015 (1.000-1.030) 01/13/20 18:05 Urine Protein 2+ (NEGATIVE) 01/13/20 18:05 Urine Glucose (UA) Negative (NEGATIVE) 01/13/20 18:05 Urine Ketones Negative (NEGATIVE) 01/13/20 18:05 Urine Occult Blood 1+ (NEGATIVE) 01/13/20 18:05 Urine Nitrite Negative (NEGATIVE) 01/13/20 18:05 Urine Bilirubin Negative (NEGATIVE) 01/13/20 18:05 Urine Urobilinogen Normal (NORMAL) 01/13/20 18:05 Ur Leukocyte Esterase Negative (NEGATIVE) 01/13/20 18:05 Urine RBC 0-2 /HPF (0-3) 01/13/20 18:05 Urine WBC 0-2 /HPF (0-5) 01/13/20 18:05 Ur Squamous Epith Cells Rare /HPF (NEGATIVE) 01/13/20 18:05 Amorphous Sediment Trace /HPF (NEGATIVE) 01/13/20 18:05 Urine Bacteria Trace /HPF (NEGATIVE) 01/13/20 18:05 Urine Mucus Few /HPF (NEGATIVE) 01/12/20 13:45 Ur Culture Indicated? No/not indicated 01/13/20 18:05 Stool Description Fob tube 01/12/20 11:15 Stl Occult Blood (IFOB) Positive (NEGATIVE) A 01/12/20 11:15 Digoxin 0.59 ng/mL (0.9-2) L 01/16/20 04:23 Tissue Pathology To follow 01/13/20 13:30 Blood Type O POSITIVE 01/11/20 19:26 Antibody Screen Negative 01/11/20 19:26 Crossmatch See Detail 01/11/20 19:26 - Plan (1) Atrial fibrillation with RVR Status: Acute Plan: NS AT 75 ML/HR, CARDIZEM CD 240MG PO DAILY, DIGOXIN 0.125MG PO DAILY, IV ZOSYN, THE POTASSIUM AND MAGNESIUM PROTOCOLS, PEPCID IV, PROTONIX IV, GI COCKTAIL, AND HOME MEDICATIONS WERE RESUMED, OBTAIN CULTURES (2) Pneumonia Status: Acute Qualifiers: Pneumonia type: due to unspecified organism Laterality: right Lung location: unspecified part of lung Qualified Code(s): J18.9 - Pneumonia, unspecified organism Plan: IV ZOSYN, RESPIRATORY TX, SUPPLEMENTAL OXYGEN, CONTINUE TO MONITOR (3) Anemia Status: Acute Qualifiers: Anemia type: iron deficiency Iron deficiency anemia type: unspecified iron deficiency Qualified Code(s): D50.9 - Iron deficiency anemia, unspecified Plan: CONTINUE TO MONITOR (4) Leukocytosis Status: Acute Qualifiers: Leukocytosis type: unspecified Qualified Code(s): D72.829 - Elevated white blood cell count, unspecified Plan: ZOSYN 4.5G IV TID, CONTINUE TO MONITOR
--- NOTE | 2020-01-17 13:42 | PCM.PROG ---
Progress Note - Progress Note for Day of Date of Exam: 01/17/20 - Subjective Subjective: IS BEING TREATED FOR A-FIB WITH RVR, PNEUMONIA, AND ANEMIA. TODAY, SHE IS ALERT AND ORIENTED, LYING IN BED ON MORNING ROUNDS. SHE REPORTS SHORTNESS OF BREATH AND COUGH. SHE ALSO CONTINUES TO BE TACHYCARDIC THIS MORNING. ON EXAMINATION, HEART RHYTHM IS IRREGULAR. RATE IS NOTED TO BE IN THE 130s-150s. BILATERAL LUNGS ARE NOTED WITH DIMINISHED LUNG SOUNDS THROUGHOUT. ABDOMEN IS ROUND, SOFT, AND NOTED WITH DIFFUSE TENDERNESS. NORMAL BOWEL SOUNDS ARE NOTED IN ALL QUADRANTS. HER VITALS THIS MORNING ARE: 98.0-130-20-99%-162/93. LABS WERE OBTAINED. ABNORMAL LAB VALUES INCLUDE THE FOLLOWING: HGB 10.1, HCT 30.5, PLT COUNT 177, CARBON DIOXIDE 33.8, CALCIUM 8.0, TOTAL PROTEIN 6.2, ALBUMI N 1.9. SPUTUM CULTURES ARE PENDING. SHE IS CURRENTLY RECEIVING NS AT 75ML/HR, ZOSYN 4.5G IV TID, RESPIRATORY TX, THE POTASSIUM AND MAGNESIUM PROTOCOLS, PEPCID IV, PROTONIX IV, GI COCKTAIL, CARDIZEM 240MG PO DAILY, DIGOXIN 0.125MG PO DAILY, VALIUM 5MG IV Q8H PRN, AND HOME MEDICATIONS WERE RESUMED. WE WILL ADD METOPROLOL XL 25MG PO DAILY TODAY FOR ELEVATED HEART RATE AND OBTAIN AN ECHO. OTHERWISE, WE WILL CONTINUE WITH CURRENT PLAN OF CARE. WE PLAN TO FOLLOW UP WITH AM LABS AND CONTINUE TO MONITOR. - Past Medical Family Social History Past Med/Fam/Surg Hx: No changes since H&P Allergies: Allergies No Known Drug Allergies Allergy (Verified 01/11/20 17:18) - Review of Systems ROS: No change since H&P - Vital Signs and I&O's Vital Signs: Temperature 98.5 F Pulse Rate [Apical] 167 Pulse Rate 128 Respiratory Rate 21 Blood Pressure [Left Arm] 169/106 Blood Pressure 141/87 O2 Sat by Pulse Oximetry 96 Intake and Output: Intake & Output 01/15/20 01/16/20 01/17/20 01/18/20 11:59 11:59 11:59 11:59 Intake Total 1850 / 1850 670 / 670 1226 / 1226 734 / 734 Output Total 4200 / 4200 Balance 1850 / 1850 670 / 670 -2974 / -2974 734 / 734 - Physical Exam Oriented: Normal Eyes: Normal Ear: Normal Nose: Normal Throat: Normal Respiratory: Generalized, Diminished Cardiovascular: Tachycardia, Irregular. negative: S3, S4, Murmur : Normal Auscultation: Bowel Sounds: Normal Palpation: Normal Tenderness: Epigastric Skin: Normal Musculoskeletal: Normal Psychiatric: Normal Mood Description: Calm, Appropriate Affect: Normal Speech Pattern: Clear - Laboratory and Diagnostics Result Diagrams: 01/17/20 04:07 01/17/20 04:07 Labs: 01/12/20 12:00 Blood Blood Culture - Final 01/12/20 11:55 Blood Blood Culture - Final 01/16/20 17:32 Sputum - Expectorated Sputum - Final 01/12/20 13:45 Stool Stool Culture - Final 01/12/20 13:45 Stool - Final 01/12/20 13:45 Urine,Clean Catch Urine Culture - Final Laboratory WBC 8.7 X10^3/uL (3.6-10.0) 01/17/20 04:07 RBC 3.85 X10^6/uL (3.5-5.4) 01/17/20 04:07 Hgb 10.1 g/dL (12.0-16.0) L 01/17/20 04:07 Hct 30.5 % (36.0-47.0) L 01/17/20 04:07 MCV 79.2 fL (80.0-100.0) L 01/17/20 04:07 MCH 26.1 pg (27.0-34.0) L 01/17/20 04:07 MCHC 33.0 g/dL (33.0-35.0) 01/17/20 04:07 RDW 18.6 % (11.6-16.5) H 01/17/20 04:07 Plt Count 777 X10^3/uL (150.0-450.0) H 01/17/20 04:07 Plt Count Comment Increased (ADEQUATE) A 01/17/20 04:07 MPV 6.8 fL (7.4-11.0) L 01/17/20 04:07 Neut % (Auto) 79.7 % (42.0-75.0) H 01/17/20 04:07 Lymph % (Auto) 11.7 % (21.0-51.0) L 01/17/20 04:07 [place] % (Auto) 6.6 % (0.0-13.0) 01/17/20 04:07 Eos % (Auto) 1.1 % (0.9-2.9) 01/17/20 04:07 Baso % (Auto) 0.9 % (0.2-1.0) 01/17/20 04:07 Neut # (Auto) 6.9 x10^3/uL (2.2-4.8) H 01/17/20 04:07 Lymph # (Auto) 1.0 X10^3/uL (1.3-2.9) L 01/17/20 04:07 [place] # (Auto) 0.6 x10^3/uL (0.3-0.8) 01/17/20 04:07 Eos # (Auto) 0.1 x10^3/uL (0.0-0.2) 01/17/20 04:07 Baso # (Auto) 0.1 X10^3/uL (0.0-0.1) 01/17/20 04:07 Absolute Nucleated RBC 0.0 /100WBC 01/17/20 04:07 Plt Morphology Comment Normal (NORMAL) 01/17/20 04:07 RBC Morphology Normal (NORMAL) 01/17/20 04:07 Hypochromasia Slight A 01/16/20 04:23 Anisocytosis Slight A 01/16/20 04:23 Microcytosis Slight A 01/11/20 18:15 Ovalocytes Present 01/13/20 04:56 Schistocytes Slight A 01/11/20 18:15 Sodium 143 mmol/L (136-145) 01/17/20 04:07 Corrected Sodium TNP 01/17/20 04:07 Potassium 3.7 mmol/L (3.5-5.1) 01/17/20 04:07 Chloride 104 mmol/L (98-107) 01/17/20 04:07 Carbon Dioxide 33.8 mmol/L (21-32) H 01/17/20 04:07 BUN 7 mg/dL (7-18) 01/17/20 04:07 Creatinine 0.64 mg/dL (0.55-1.02) 01/17/20 04:07 Est GFR (MDRD) Af Amer > 60 (>60) 01/17/20 04:07 Est GFR (MDRD) Non-Af > 60 (>60) 01/17/20 04:07 Glucose 81 mg/dL (65-99) 01/17/20 04:07 Calcium 8.0 mg/dL (8.5-10.1) L 01/17/20 04:07 Corrected Calcium 9.7 mg/dL (8.5-10.1) 01/17/20 04:07 Magnesium 2.3 mg/dL (1.7-2.9) 01/17/20 04:07 Iron 12 ug/dL (50-175) L 01/11/20 18:15 TIBC 250 ug/dL (250-450) 01/11/20 18:15 TIBC Cancelled 01/11/20 18:15 % Saturation 4.8 % (11.0-46.0) L 01/11/20 18:15 Ferritin 113 ng/mL (8-252) 01/11/20 18:15 Total Bilirubin 0.40 mg/dL (0.2-1.0) 01/17/20 04:07 AST 27 Units/L (15-37) 01/17/20 04:07 ALT 26 Units/L (12-78) 01/17/20 04:07 Alkaline Phosphatase 116 Units/L (46-116) 01/17/20 04:07 Creatine Kinase 41 Units/L (26-192) 01/11/20 18:15 CK-MB (CK-2) 1.9 ng/mL (0-4.0) 01/11/20 18:15 CK/CKMB % Calc 4.6 % (<4) 01/11/20 18:15 Troponin I < 0.02 ng/mL (0-1.5) 01/11/20 18:15 Total Protein 6.2 g/dL (6.4-8.2) L 01/17/20 04:07 Albumin 1.9 g/dL (3.4-5.0) L 01/17/20 04:07 Globulin 4.3 g/dL (2.5-4.5) 01/17/20 04:07 Albumin/Globulin Ratio 0.4 Ratio (1.1-2.1) L 01/17/20 04:07 Specimen Type Catherized urine 01/13/20 18:05 Urine Color Yellow (YELLOW) 01/13/20 18:05 Urine Appearance Slightly hazy (CLEAR) 01/13/20 18:05 Urine pH 5.0 (5.0 - 8.0) 01/13/20 18:05 Ur Specific [place] 1.015 (1.000-1.030) 01/13/20 18:05 Urine Protein 2+ (NEGATIVE) 01/13/20 18:05 Urine Glucose (UA) Negative (NEGATIVE) 01/13/20 18:05 Urine Ketones Negative (NEGATIVE) 01/13/20 18:05 Urine Occult Blood 1+ (NEGATIVE) 01/13/20 18:05 Urine Nitrite Negative (NEGATIVE) 01/13/20 18: Urine Bilirubin Negative (NEGATIVE) 01/13/20 18:05 Urine Urobilinogen Normal (NORMAL) 01/13/20 18:05 Ur Leukocyte Esterase Negative (NEGATIVE) 01/13/20 18:05 Urine RBC 0-2 /HPF (0-3) 01/13/20 18:05 Urine WBC 0-2 /HPF (0-5) 01/13/20 18:05 Ur Squamous Epith Cells Rare /HPF (NEGATIVE) 01/13/20 18:05 Amorphous Sediment Trace /HPF (NEGATIVE) 01/13/20 18:05 Urine Bacteria Trace /HPF (NEGATIVE) 01/13/20 18:05 Urine Mucus Few /HPF (NEGATIVE) 01/12/20 13:45 Ur Culture Indicated? No/not indicated 01/13/20 18:05 Stool Description Fob tube 01/12/20 11:15 Stl Occult Blood (IFOB) Positive (NEGATIVE) A 01/12/20 11:15 Digoxin 0.59 ng/mL (0.9-2) L 01/16/20 04:23 Tissue Pathology To follow 01/13/20 13:30 Blood Type O POSITIVE 01/11/20 19:26 Antibody Screen Negative 01/11/20 19:26 Crossmatch See Detail 01/11/20 19:26 - Plan (1) Atrial fibrillation with RVR Status: Acute Plan: NS AT 75 ML/HR, CARDIZEM CD 240MG PO DAILY, DIGOXIN 0.125MG PO DAILY, METOPROLOL XL 25MG PO DAILY, CONTINUE TO MONITOR (2) Pneumonia Status: Acute Qualifiers: Pneumonia type: due to unspecified organism Laterality: right Lung location: unspecified part of lung Qualified Code(s): J18.9 - Pneumonia, unsp ecified organism Plan: IV ZOSYN, RESPIRATORY TX, SUPPLEMENTAL OXYGEN, CONTINUE TO MONITOR (3) Anemia Status: Acute Qualifiers: Anemia type: iron deficiency Iron deficiency anemia type: unspecified iron deficiency Qualified Code(s): D50.9 - Iron deficiency anemia, unspecified Plan: CONTINUE TO MONITOR (4) Leukocytosis Status: Acute Qualifiers: Leukocytosis type: unspecified Qualified Code(s): D72.829 - Elevated white blood cell count, unspecified Plan: ZOSYN 4.5G IV TID, CONTINUE TO MONITOR
[2020-01-17] MEDS: KLONOPIN TAB 0.5 MG PO SCH (20:39)
[2020-01-17] MEDS: XALATAN OP SCH (20:42)
[2020-01-18] MEDS: NORCO 10/325 TAB PO PRN ×2 (00:08→13:32)
[2020-01-18] MEDS: XOPENEX 1.25 MG/3 ML NEBULE NEB SCH ×3 (00:45→12:10)
[2020-01-18 04:59] LABS: BASOPHILS # (AUTO) 0.1 X10^3/uL (0.0-0.1); EOSINOPHILS # (AUTO) 0.1 x10^3/uL (0.0-0.2); EOSINOPHILS % (AUTO) 1.4 % (0.9-2.9); HEMATOCRIT 30.1 % (36.0-47.0); HEMOGLOBIN 9.6 g/dL (12.0-16.0); LYMPHOCYTES % (AUTO) 11.8 % (21.0-51.0); MEAN CORPUSCULAR HEMOGLOBIN 24.7 pg (27.0-34.0); MEAN CORPUSCULAR HGB CONC 31.9 g/dL (33.0-35.0); MEAN CORPUSCULAR VOLUME 77.4 fL (80.0-100.0); MEAN PLATELET VOLUME 6.7 fL (7.4-11.0); MONOCYTES # (AUTO) 0.7 x10^3/uL (0.3-0.8); MONOCYTES % (AUTO) 8.4 % (0.0-13.0); NEUTROPHILS # (AUTO) 6.3 x10^3/uL (2.2-4.8); NEUTROPHILS % (AUTO) 77.4 % (42.0-75.0); PLATELET COUNT 755 X10^3/uL (150.0-450.0); RED BLOOD COUNT 3.88 X10^6/uL (3.5-5.4); RED CELL DISTRIBUTION WIDTH 19.2 % (11.6-16.5); WHITE BLOOD COUNT 8.1 X10^3/uL (3.6-10.0)
[2020-01-18 05:22] LABS: ALANINE AMINOTRANSFERASE 35 Units/L (12-78); ALBUMIN 1.8 g/dL (3.4-5.0); ALKALINE PHOSPHATASE 90 Units/L (46-116); ASPARTATE AMINO TRANSFERASE 44 Units/L (15-37); BLOOD UREA NITROGEN 9 mg/dL (7-18); CALCIUM 7.9 mg/dL (8.5-10.1); CHLORIDE 107 mmol/L (98-107); COR CA(FOR HYPOALB) 9.7 mg/dL (8.5-10.1); CREATININE 0.65 mg/dL (0.55-1.02); DIGOXIN 0.68 ng/mL (0.9-2); SODIUM 142 mmol/L (136-145); TOTAL PROTEIN 5.6 g/dL (6.4-8.2); eGFR NON BLACK RACES > 60 (>60)
[2020-01-18] MEDS: NS 1000 ML 1,000 ML IV SCH (05:32)
[2020-01-18] MEDS: ZOSYN VIAL 4.5 GRAMS 4.5 G in NS 100 ML IV + SPIKE MINIBAG* 100 ML IV SCH ×2 (05:32→14:06)
--- NOTE | 2020-01-18 06:01 | RAD ---
HISTORYShortness of breathSTUDYCHEST, 1 VIEWCOMAsc[facility] Hospitaluary 2019FINDINGSThe heart remains enlarged. The aorta is calcified and ectatic. The lungs are well inflated and free of acute alveolar infiltrates. No pleural effusions are identified. Bony thorax is unremarkable with the exception of left-sided glenohumeral degenerative joint disease.IMPRESSIONCardiomegaly without congestive heart failure, stableLungs free of acute infiltratesElectronically signed by: CONRADO MAHMOOD (Jan 18, 2020 05:59:27)
[2020-01-18 06:42] LABS: PLATELET MORPHOLOGY COMMENT NORMAL (NORMAL)
[2020-01-18] MEDS ORDERED: ZESTRIL TAB 20 MG ONE (08:36)
[2020-01-18] MEDS: NICOTINE PATCH TD SCH (08:38)
[2020-01-18] MEDS: PROTONIX INJ 40 MG VIAL IVP SCH (08:38)
[2020-01-18] MEDS: LEVSIN/MAALOX/LIDOC VISC PO SCH ×2 (08:39→13:11)
[2020-01-18] MEDS: CARDIZEM CD 240 MG 24-HR PO SCH (08:40)
[2020-01-18] MEDS: LANOXIN PO SCH (08:40)
[2020-01-18] MEDS: ASPIRIN EC 81 MG PO SCH (08:41)
[2020-01-18] MEDS: TOPROL XL PO SCH (08:41)
[2020-01-18] MEDS: ZESTRIL TAB 20 MG PO SCH (08:41)
[2020-01-18] MEDS: PRED FORTE 1 % OP SCH (08:42)
[2020-01-18] MEDS: PEPCID 20 MG IV PREMIX* 20 MG/50 ML BAG IV SCH (08:52)
[2020-01-18 16:07] VITALS: BP 141/95
== END 2020-01-18 16:35 | disposition home health service (06) | DRG 194 ==
LOC: ER 17:10 → ICU 19:11
PROVIDERS: ADMIT Internal Medicine; ATTEND Internal Medicine
DX: J44.9 Chronic obstructive pulmonary disease, unspecified; R94.31 Abnormal electrocardiogram [ECG] [EKG]; R06.02 Shortness of breath; K25.3 Acute gastric ulcer without hemorrhage or perforation; R00.0 Tachycardia, unspecified; K21.9 Gastro-esophageal reflux disease without esophagitis; K22.10 Ulcer of esophagus without bleeding; K22.2 Esophageal obstruction; R10.13 Epigastric pain; I10 Essential (primary) hypertension; R13.11 Dysphagia, oral phase; I48.91 Unspecified atrial fibrillation; D72.828 Other elevated white blood cell count; J18.8 Other pneumonia, unspecified organism; K29.60 Other gastritis without bleeding; K44.9 Diaphragmatic hernia without obstruction or gangrene; D50.8 Other iron deficiency anemias; Z23 Encounter for immunization
CPT/HCPCS: 36415; 36430; 71010; 71045; 80048; 80053; 80162; 81001; 82270; 82550; 82553; 82728; 83540; 83550; 83735; 84132; 84484; 85014; 85018; 85025; 86850; 86900; 86901; 86922; 87040; 87045; 87070; 87086; 87205; 87427; 87449; 87899; 88305; 90674; 90686; 93005; 93041; 93306; 94640; 94669; 96365; 96367; 96374; 96375; 97110; 97162; 99100; 99285; A4222; C9113; J1160; J1940; J2543; J2704; J3360; J3490; J7030; J7050; P9016; Q0177; S0028